=== PATIENT | male | born 1955 | race Caucasian/White ===

== ENCOUNTER → 2016-08-02 | Outpatient (CLI) | payer MEDICARE, OTHER ==
[~2016-08-02] MED LIST: ALEN35TA18 PO; AML5T PO; ATOR10TA PO; BUTACC GT; BUTACC PO; ESCI20TA PO; ESOM40CA39 PO; IBU800T PO; LAMO150T2 PO; NITR0.4D10 TD; PLAVIX PO; RANO1000 PO; TELM80TA PO; TRAZ100T2 PO
== END | disposition home or self-care (01) ==
LOC: Rad HDHVI 10:43
PROVIDERS: ATTEND Internal Medicine Cardiovascular Disease
DX: I10 Essential (primary) hypertension (principal); I73.89 Other specified peripheral vascular diseases; I25.10 Atherosclerotic heart disease of native coronary artery without angina pectoris; Z95.5 Presence of coronary angioplasty implant and graft; I25.2 Old myocardial infarction; I51.7 Cardiomegaly
CPT/HCPCS: 93306

== ENCOUNTER → 2017-01-17 | Outpatient (CLI) | payer MEDICARE, OTHER ==
[~2017-01-17] VITALS: Ht 172.7 cm; Wt 5.5 kg
[~2017-01-17] MED LIST changes: +ADENOSINE 74 MG in GIVE UN-DILUTED 0 ML IV ONE; +ADENOSINE 90 MG/30 ML INJ IV ONE
== END | disposition home or self-care (01) ==
LOC: Rad HDHVI 09:23
PROVIDERS: ATTEND Internal Medicine Cardiovascular Disease
DX: I11.0 Hypertensive heart disease with heart failure (principal); I50.33 Acute on chronic diastolic (congestive) heart failure; M54.30 Sciatica, unspecified side; E78.00 Pure hypercholesterolemia, unspecified; R07.89 Other chest pain; Z95.5 Presence of coronary angioplasty implant and graft
CPT/HCPCS: 78452; 93005; 96374; 96375; A9500; J0153

== ENCOUNTER → 2017-03-19 | Outpatient (CLI) | payer MEDICARE, OTHER ==
[~2017-03-19] MED LIST changes: -ADENOSINE 74 MG in GIVE UN-DILUTED 0 ML IV ONE; -ADENOSINE 90 MG/30 ML INJ IV ONE; +CALC0.5C PO; +DICL1GEL26 PO; +ISOS20TA49 PO; +MULTTAB OR; +NIAC500T71 PO
[2017-03-19 08:00] VITALS: BP 133/69
[2017-03-19 08:40] VITALS: BP 133/69
[2017-03-19 12:18] LABS: Basophils # (auto) 0 uL; Basophils % (auto) 0.3 % (0.0-2.0); CONDITION Y; Eosinophils # (auto) 0.1 uL; Eosinophils % (auto) 0.7 % (0.0-7.0); Hematocrit 42.7 % (41.0-53.0); Hemoglobin 14.5 g/dL (13.5-17.5); Lymphocytes # (auto) 4.4 uL; Lymphocytes % (auto) 39.4 % (10.0-50.0); Mean Corpuscular Hemoglobin 32.2 pg (28.0-32.0); Mean Corpuscular Volume 94.8 fL (80.0-100.0); Mean Platelet Volume 8.8 fL (7.4-10.4); Monocytes # (auto) 0.8 uL; Monocytes % (auto) 7.2 % (0.0-12.0); Neutrophils # (auto) 5.9 uL; Neutrophils % (auto) 52.4 % (37.0-80.0); Platelet Count (auto) 238 10^3/uL (140-450); Red Cell Distribution Width 13.5 % (11.6-16.0); White Blood Cell 11.2 10^3/uL (4.4-10.8)
[2017-03-19 12:27] LABS: INR 0.95 (0.9-1.15); Partial Thromboplastin Time 25.2 sec (22.64-33.71); Prothrombin Time 10.3 sec (9.37-12.3)
[2017-03-19 12:35] LABS: BUN/Creatinine Ratio 20.2; Calcium 9.1 mg/dL (8.5-10.1); Potassium 3.5 mmol/L (3.5-5.1)
== END | disposition home or self-care (01) ==
LOC: CHF HDHVI 08:01
PROVIDERS: ATTEND Internal Medicine Cardiovascular Disease
DX: Z01.812 Encounter for preprocedural laboratory examination (principal); I10 Essential (primary) hypertension; D64.9 Anemia, unspecified; R79.1 Abnormal coagulation profile; E78.00 Pure hypercholesterolemia, unspecified; Z95.5 Presence of coronary angioplasty implant and graft
CPT/HCPCS: 36415; 80048; 85025; 85610; 85730; 93005; G0463

== ENCOUNTER 2017-03-22 07:52 | Day surgery (SDC) | payer MEDICARE, OTHER ==
[~2017-03-22] VITALS: Ht 172.7 cm; Wt 90.7 kg
[~2017-03-22 07:52] MED LIST changes: -BUTACC GT; -BUTACC PO; -RANO1000 PO
[2017-03-22] MEDS ORDERED: MIDAZOLAM HCL 1MG/1ML-2 ML VIAL ONE (08:49)
[2017-03-22] MEDS ORDERED: LIDOCAINE 2%HCL (LOCAL ANESTH.) INJ 20ML MDV ONE ×2 (08:49→09:43)
[2017-03-22] MEDS ORDERED: fentaNYL CITRATE 100 MCG/2 ML VL ONE (08:50)
[2017-03-22] MEDS ORDERED: ANGIOMAX 250 MG VIAL IV ONE (08:54)
[2017-03-22] MEDS ORDERED: SODIUM CHL 0.9% 0 ML ONE (08:54)
== END 2017-03-22 12:25 | disposition home or self-care (01) ==
LOC: CATH 07:52
PROVIDERS: ATTEND Internal Medicine Cardiovascular Disease
DX: R07.9 Chest pain, unspecified (principal); I20.9 Angina pectoris, unspecified; Z95.1 Presence of aortocoronary bypass graft; J44.9 Chronic obstructive pulmonary disease, unspecified; F41.9 Anxiety disorder, unspecified; F32.9 Major depressive disorder, single episode, unspecified; F10.99 Alcohol use, unspecified with unspecified alcohol-induced disorder
CPT/HCPCS: 93458; C1751; C1760; C1894; J1644; J2250; J3010; J7030; 99152; 99153

== ENCOUNTER 2017-08-27 14:31 | Inpatient (IN) | payer MEDICARE, OTHER ==
[~2017-08-27] VITALS: Ht 172.7 cm; Wt 91.7 kg
[2017-08-27 15:57] LABS: Basophils # (auto) 0 uL; Basophils % (auto) 0.4 % (0.0-2.0); Eosinophils # (auto) 0.2 uL; Eosinophils % (auto) 1.6 % (0.0-7.0); Hematocrit 40.7 % (41.0-53.0); Hemoglobin 13.9 g/dL (13.5-17.5); Lymphocytes # (auto) 3.8 uL; Lymphocytes % (auto) 38.9 % (10.0-50.0); Mean Corpuscular Hemoglobin 29.6 pg (28.0-32.0); Mean Corpuscular Hgb Conc. 34.1 g/dL (32.0-36.0); Mean Corpuscular Volume 86.7 fL (80.0-100.0); Monocytes # (auto) 1.1 uL; Monocytes % (auto) 11.2 % (0.0-12.0); Neutrophils # (auto) 4.8 uL; Neutrophils % (auto) 47.9 % (37.0-80.0); Nucleated Red Blood Cells % 1.3 %; Platelet Count (auto) 152 10^3/uL (140-450); Red Blood Cells 4.69 10^6/uL (4.5-5.90); Red Cell Distribution Width 16.1 % (11.8-14.3); White Blood Cell 9.9 10^3/uL (4.4-10.8)
[2017-08-27 16:08] LABS: Potassium 3.4 mmol/L (3.5-5.1)
[2017-08-27 16:11] LABS: Albumin 3.6 g/dL (3.4-5.0); BUN/Creatinine Ratio 19.6
[2017-08-27 16:14] LABS: Bilirubin, Total 0.5 mg/dL (0.2-1.0); Total Protein 8.6 g/dL (6.4-8.2)
[2017-08-27] MEDS ORDERED: methylPREDNISolone SOD SUCC 125 MG/2 ML VL IM ONE (17:00)
[2017-08-27] MEDS ORDERED: ALBUTEROL SULF 2.5 MG/0.5ML(0.5%) NEB SOLN HHN ONE ×2 (17:00→18:45)
[2017-08-27] MEDS ORDERED: IPRATROPIUM BROM 0.5 MG/2.5ML INH SOL HHN ONE ×2 (17:00→18:45)
[2017-08-27] MEDS ORDERED: methylPREDNISolone SOD SUCC 125 MG/2 ML VL IV ONE (18:00)
[2017-08-27] MEDS ORDERED: NITROGLYCERIN 0.4 MG SL TAB SL PRN (19:00)
[2017-08-27] MEDS: AZITHROMYCIN 500MG/ 250ML 250 ML IV SCH (20:11)
[2017-08-27 21:43] VITALS: BP 115/64
[2017-08-27] MEDS: traZODone HCL 50 MG TAB PO SCH (22:00)
[2017-08-27] MEDS: methylPREDNISolone SOD SUCC 40 MG/ML VL IV SCH (22:12)
[2017-08-27 22:30] VITALS: BP 147/68
[2017-08-28] MEDS ORDERED: GABA300C10 PO (00:09)
[2017-08-28] MEDS ORDERED: TRAM50TA2 PO (00:09)
[2017-08-28] MEDS ORDERED: TIZA4CAP PO (00:09)
[2017-08-28 05:00] VITALS: BP 147/72
[2017-08-28] MEDS: methylPREDNISolone SOD SUCC 40 MG/ML VL IV SCH ×3 (05:44→22:08)
[2017-08-28] MEDS: ALBUTEROL SULF 2.5 MG/0.5ML(0.5%) NEB SOLN NEB SCH ×5 (06:59→23:52)
[2017-08-28 08:45] VITALS: BP 140/71
[2017-08-28] MEDS: LEXAPRO 20 MG PO SCH (09:20)
[2017-08-28] MEDS: amLODIPine BESYLATE 5 MG TAB PO SCH (09:26)
[2017-08-28] MEDS: ATORVASTATIN 20 MG TAB PO SCH (09:27)
[2017-08-28] MEDS: PANTOPRAZOLE 40 MG TAB PO SCH (09:27)
[2017-08-28] MEDS: IBUPROFEN 800 MG TAB PO PRN (09:34)
[2017-08-28] MEDS ORDERED: MICARDIS 40 MG PO SCH (10:00)
[2017-08-28] MEDS ORDERED: ISOSORBIDE DINITRATE 10 MG TAB PO SCH (10:00)
[2017-08-28] MEDS ORDERED: lamoTRIgine 100 MG TAB PO SCH (10:00)
[2017-08-28] MEDS: AZITHROMYCIN 500MG/ 250ML 250 ML IV SCH (10:26)
[2017-08-28] MEDS: CLOPIDOGREL BISULFATE 75 MG TAB PO ONE ×2 (10:27→18:55)
[2017-08-28 12:35] VITALS: BP 126/68
[2017-08-28] MEDS ORDERED: CITALOPRAM HYDROBR 20 MG TAB PO SCH (15:15)
[2017-08-28] MEDS ORDERED: LOSARTAN POTASSIUM 50 MG TAB PO SCH (15:15)
[2017-08-28 17:22] VITALS: BP 131/72
[2017-08-28] MEDS: MICARDIS PO SCH (18:55)
[2017-08-28] MEDS: HCT PO SCH (18:55)
[2017-08-28 22:00] VITALS: BP 132/59
[2017-08-28] MEDS: traZODone HCL 50 MG TAB PO SCH (22:07)
[2017-08-28] MEDS: lamoTRIgine 100 MG TAB PO SCH (22:08)
[2017-08-29 05:00] VITALS: BP 128/68
[2017-08-29] MEDS: methylPREDNISolone SOD SUCC 40 MG/ML VL IV SCH ×3 (06:13→22:56)
[2017-08-29] MEDS: ALBUTEROL SULF 2.5 MG/0.5ML(0.5%) NEB SOLN NEB SCH ×3 (08:15→19:58)
[2017-08-29 09:00] VITALS: BP 106/63
[2017-08-29] MEDS ORDERED: PATIENTS OWN MEDICATION PO SCH (10:00)
[2017-08-29] MEDS: ATORVASTATIN 20 MG TAB PO SCH (10:06)
[2017-08-29] MEDS: amLODIPine BESYLATE 5 MG TAB PO SCH (10:07)
[2017-08-29] MEDS: PANTOPRAZOLE 40 MG TAB PO SCH (10:07)
[2017-08-29] MEDS: AZITHROMYCIN 500MG/ 250ML 250 ML IV SCH (10:07)
[2017-08-29] MEDS: MICARDIS PO SCH (10:10)
[2017-08-29] MEDS: HCT PO SCH (10:10)
[2017-08-29 13:00] VITALS: BP 124/61
[2017-08-29] MEDS: LEXAPRO 20 MG PO SCH (13:01)
[2017-08-29 17:00] VITALS: BP 124/70
[2017-08-29 22:00] VITALS: BP 117/59
[2017-08-29] MEDS: lamoTRIgine 100 MG TAB PO SCH (22:56)
[2017-08-29] MEDS: traZODone HCL 50 MG TAB PO SCH (22:56)
[2017-08-30] MEDS: ALBUTEROL SULF 2.5 MG/0.5ML(0.5%) NEB SOLN NEB SCH ×4 (00:34→19:38)
[2017-08-30 05:00] VITALS: BP 120/65
[2017-08-30] MEDS: methylPREDNISolone SOD SUCC 40 MG/ML VL IV SCH ×3 (06:49→21:27)
[2017-08-30 07:28] LABS: Basophils # (auto) 0 uL; Eosinophils # (auto) 0 uL; Hematocrit 36.9 % (41.0-53.0); Hemoglobin 12.8 g/dL (13.5-17.5); Lymphocytes # (auto) 6.3 uL; Lymphocytes % (auto) 37.3 % (10.0-50.0); Mean Corpuscular Hgb Conc. 34.7 g/dL (32.0-36.0); Mean Corpuscular Volume 86.4 fL (80.0-100.0); Monocytes # (auto) 0.7 uL; Neutrophils # (auto) 9.9 uL; Neutrophils % (auto) 58.7 % (37.0-80.0); Nucleated Red Blood Cells % 0.3 %; Platelet Count (auto) 163 10^3/uL (140-450); Red Blood Cells 4.27 10^6/uL (4.5-5.90); Red Cell Distribution Width 15.7 % (11.8-14.3); White Blood Cell 16.9 10^3/uL (4.4-10.8)
[2017-08-30 07:40] LABS: BUN/Creatinine Ratio 34.9; Calcium 8.4 mg/dL (8.5-10.1); Potassium 3.6 mmol/L (3.5-5.1)
[2017-08-30 09:00] VITALS: BP 117/64
[2017-08-30] MEDS: IBUPROFEN 800 MG TAB PO PRN ×2 (09:44→21:47)
[2017-08-30] MEDS: AZITHROMYCIN 500MG/ 250ML 250 ML IV SCH (12:46)
[2017-08-30] MEDS: LEXAPRO 20 MG PO SCH (12:46)
[2017-08-30] MEDS: ATORVASTATIN 20 MG TAB PO SCH (12:47)
[2017-08-30] MEDS: HCT PO SCH (12:47)
[2017-08-30] MEDS: MICARDIS PO SCH (12:47)
[2017-08-30] MEDS: amLODIPine BESYLATE 5 MG TAB PO SCH (12:48)
[2017-08-30] MEDS: PANTOPRAZOLE 40 MG TAB PO SCH (12:49)
[2017-08-30 13:00] VITALS: BP 115/59
[2017-08-30 17:00] VITALS: BP 114/64
[2017-08-30 20:47] VITALS: BP 114/61
[2017-08-30] MEDS: traZODone HCL 50 MG TAB PO SCH (21:26)
[2017-08-30] MEDS: lamoTRIgine 100 MG TAB PO SCH (21:26)
[2017-08-30 21:51] VITALS: BP 128/62
[2017-08-31] MEDS: ALBUTEROL SULF 2.5 MG/0.5ML(0.5%) NEB SOLN NEB SCH ×4 (01:10→13:04)
[2017-08-31 05:00] VITALS: BP 107/63
[2017-08-31] MEDS: methylPREDNISolone SOD SUCC 40 MG/ML VL IV SCH ×2 (05:57→14:00)
[2017-08-31 09:00] VITALS: BP 118/63
[2017-08-31] MEDS: MICARDIS PO SCH (10:32)
[2017-08-31] MEDS: LEXAPRO 20 MG PO SCH (10:32)
[2017-08-31] MEDS: HCT PO SCH (10:32)
[2017-08-31] MEDS: ATORVASTATIN 20 MG TAB PO SCH (10:33)
[2017-08-31] MEDS: amLODIPine BESYLATE 5 MG TAB PO SCH (10:35)
[2017-08-31] MEDS: PANTOPRAZOLE 40 MG TAB PO SCH (10:35)
[2017-08-31] MEDS: AZITHROMYCIN 500MG/ 250ML 250 ML IV SCH (10:36)
[2017-08-31 13:00] VITALS: BP 143/57
[2017-08-31 16:23] VITALS: BP 143/57
[2017-08-31 17:27] VITALS: BP 125/64
== END 2017-08-31 17:31 | disposition home or self-care (01) | DRG 871 ==
LOC: ER 14:31 → TELE 14:32 → TELE-EAST 22:25
PROVIDERS: ADMIT Internal Medicine Cardiovascular Disease; ATTEND Internal Medicine Cardiovascular Disease
DX: A41.9 Sepsis, unspecified organism (principal); N17.0 Acute kidney failure with tubular necrosis; I11.0 Hypertensive heart disease with heart failure; J18.9 Pneumonia, unspecified organism; I50.22 Chronic systolic (congestive) heart failure; E11.9 Type 2 diabetes mellitus without complications; I25.10 Atherosclerotic heart disease of native coronary artery without angina pectoris; F32.9 Major depressive disorder, single episode, unspecified; F41.9 Anxiety disorder, unspecified; I25.5 Ischemic cardiomyopathy; J40 Bronchitis, not specified as acute or chronic; K21.9 Gastro-esophageal reflux disease without esophagitis; Z82.49 Family history of ischemic heart disease and other diseases of the circulatory system; Z95.5 Presence of coronary angioplasty implant and graft
CPT/HCPCS: 36415; 71046; 80048; 80053; 83880; 85025; 87804; 93005; 94640; 96374

== ENCOUNTER → 2017-10-25 | Outpatient (CLI) | payer MEDICARE, OTHER ==
[~2017-10-25] MED LIST changes: -ALEN35TA18 PO; -ATOR10TA PO; -CALC0.5C PO; -DICL1GEL26 PO; -ESOM40CA39 PO; +GABA300C10 PO; -ISOS20TA49 PO; -MULTTAB OR; -NIAC500T71 PO; +TIZA4CAP PO; +TRAM50TA2 PO
== END | disposition home or self-care (01) ==
LOC: Rad HDHVI 09:55
PROVIDERS: ATTEND Internal Medicine Cardiovascular Disease
DX: I25.5 Ischemic cardiomyopathy (principal); E11.9 Type 2 diabetes mellitus without complications; K21.9 Gastro-esophageal reflux disease without esophagitis; J44.9 Chronic obstructive pulmonary disease, unspecified; I10 Essential (primary) hypertension
CPT/HCPCS: 93306

== ENCOUNTER → 2017-11-27 | Outpatient (CLI) | payer MEDICARE, OTHER ==
[~2017-11-27] MED LIST changes: +MVI in SODIUM CHLORIDE 0.9% 1,000 ML IVB ONE; +MVI in SODIUM CHLORIDE 0.9% 1,010 ML ONE
[2017-11-27 15:58] LABS: BUN/Creatinine Ratio 21.3; Calcium 9.4 mg/dL (8.5-10.1); Potassium 3.1 mmol/L (3.5-5.1)
[2017-11-27 16:03] LABS: Eosinophils # (auto) 0.1 uL; Eosinophils % (auto) 0.4 % (0.0-7.0); Hemoglobin 14.4 g/dL (13.5-17.5)
[2017-11-27 16:06] LABS: Basophils # (auto) 0 uL; Basophils % (auto) 0.2 % (0.0-2.0); Hematocrit 40.4 % (41.0-53.0); Lymphocytes # (auto) 8.3 uL; Lymphocytes % (auto) 48.9 % (10.0-50.0); Mean Corpuscular Hemoglobin 30.9 pg (28.0-32.0); Mean Corpuscular Hgb Conc. 35.6 g/dL (32.0-36.0); Monocytes # (auto) 1.3 uL; Monocytes % (auto) 7.9 % (0.0-12.0); Neutrophils # (auto) 7.2 uL; Neutrophils % (auto) 42.6 % (37.0-80.0); Nucleated Red Blood Cells % 0.3 %; Platelet Count (auto) 484 10^3/uL (140-450); Red Blood Cells 4.65 10^6/uL (4.5-5.90); Red Cell Distribution Width 14.6 % (11.8-14.3)
[2017-11-27 16:14] VITALS: BP 114/60
== END | disposition home or self-care (01) ==
LOC: CHF HDHVI 13:09
PROVIDERS: ATTEND Internal Medicine Cardiovascular Disease
DX: E86.0 Dehydration (principal); D64.9 Anemia, unspecified; M54.2 Cervicalgia; I25.10 Atherosclerotic heart disease of native coronary artery without angina pectoris; E11.9 Type 2 diabetes mellitus without complications; K21.9 Gastro-esophageal reflux disease without esophagitis; J44.9 Chronic obstructive pulmonary disease, unspecified; I11.0 Hypertensive heart disease with heart failure; I50.22 Chronic systolic (congestive) heart failure; Z95.1 Presence of aortocoronary bypass graft
CPT/HCPCS: 36415; 80048; 85025; 96365; 96366; G0463; J3411; J3475

== ENCOUNTER → 2017-12-07 | Outpatient (CLI) | payer MEDICARE, OTHER ==
[~2017-12-07] MED LIST changes: +MULTIPLE VITAMIN 10 ML in SODIUM CHLORIDE 0.9% 1,000 ML IV ONE; -MVI in SODIUM CHLORIDE 0.9% 1,000 ML IVB ONE
[2017-12-07 09:55] VITALS: BP 124/61
[2017-12-07 10:59] LABS: Basophils # (auto) 0 uL; Basophils % (auto) 0.3 % (0.0-2.0); Eosinophils # (auto) 0.1 uL; Eosinophils % (auto) 0.5 % (0.0-7.0); Hematocrit 38.4 % (41.0-53.0); Hemoglobin 13.2 g/dL (13.5-17.5); Lymphocytes # (auto) 5.8 uL; Lymphocytes % (auto) 47.1 % (10.0-50.0); Mean Corpuscular Hemoglobin 30.8 pg (28.0-32.0); Mean Corpuscular Hgb Conc. 34.4 g/dL (32.0-36.0); Mean Corpuscular Volume 89.5 fL (80.0-100.0); Monocytes # (auto) 0.6 uL; Monocytes % (auto) 4.6 % (0.0-12.0); Neutrophils # (auto) 5.9 uL; Neutrophils % (auto) 47.5 % (37.0-80.0); Nucleated Red Blood Cells % 0.2 %; Platelet Count (auto) 282 10^3/uL (140-450); Red Cell Distribution Width 14.3 % (11.8-14.3); White Blood Cell 12.4 10^3/uL (4.4-10.8)
[2017-12-07 11:09] LABS: Albumin 3.6 g/dL (3.4-5.0); BUN/Creatinine Ratio 18.3; Bilirubin, Total 0.5 mg/dL (0.2-1.0); Calcium 9.1 mg/dL (8.5-10.1); Potassium 3.5 mmol/L (3.5-5.1); Total Protein 8.5 g/dL (6.4-8.2)
[2017-12-07 13:00] VITALS: BP 122/64
== END | disposition home or self-care (01) ==
LOC: CHF HDHVI 09:54
PROVIDERS: ATTEND Internal Medicine Cardiovascular Disease
DX: D64.9 Anemia, unspecified (principal); R70.0 Elevated erythrocyte sedimentation rate; I10 Essential (primary) hypertension; R06.02 Shortness of breath; E11.9 Type 2 diabetes mellitus without complications; K21.9 Gastro-esophageal reflux disease without esophagitis
CPT/HCPCS: 36415; 71046; 80053; 85025; 85652; G0463; J3411; J3475

== ENCOUNTER 2017-12-25 19:12 | Inpatient (IN) | payer MEDICARE, OTHER ==
[~2017-12-25] VITALS: Ht 172.7 cm; Wt 80.6 kg
[~2017-12-25 19:12] MED LIST changes: -MULTIPLE VITAMIN 10 ML in SODIUM CHLORIDE 0.9% 1,000 ML IV ONE; -MVI in SODIUM CHLORIDE 0.9% 1,010 ML ONE
[2017-12-25] MEDS ORDERED: LORazepam 2MG/ML-1ML VIAL ONE (19:49)
[2017-12-25 20:11] LABS: INR 0.94 (0.9-1.15); Partial Thromboplastin Time 24.3 sec (23.78-33.04); Prothrombin Time 10.1 sec (9.27-12.13)
[2017-12-25 20:16] LABS: Alanine Aminotransferase 21 U/L (16-61); Albumin 3.4 g/dL (3.4-5.0); Anion Gap 9 (5-15); Aspartate Aminotransferase 9 U/L (15-37); BUN/Creatinine Ratio 12.9; Blood Urea Nitrogen 12 mg/dL (7-18); Calcium 8.6 mg/dL (8.5-10.1); Carbon Dioxide 24 mmol/L (21-32); Chloride 107 mmol/L (98-107); GFR African American 105 mL/min; GFR Non-African American 87 mL/min; Glucose 120 mg/dL (74-106); Magnesium 2.3 mg/dL (1.6-2.6); Potassium 3.9 mmol/L (3.5-5.1); Sodium 140 mmol/L (136-145)
[2017-12-25 20:20] LABS: Basophils # (auto) 0 uL; Basophils % (auto) 0.3 % (0.0-2.0); Eosinophils # (auto) 0.1 uL; Eosinophils % (auto) 0.5 % (0.0-7.0); Hematocrit 39.3 % (41.0-53.0); Hemoglobin 13.3 g/dL (13.5-17.5); Lymphocytes # (auto) 4.2 uL; Lymphocytes % (auto) 33.2 % (10.0-50.0); Mean Corpuscular Hemoglobin 30.8 pg (28.0-32.0); Mean Corpuscular Hgb Conc. 33.8 g/dL (32.0-36.0); Mean Corpuscular Volume 91.1 fL (80.0-100.0); Monocytes # (auto) 0.8 uL; Monocytes % (auto) 6.1 % (0.0-12.0); Neutrophils # (auto) 7.5 uL; Neutrophils % (auto) 59.9 % (37.0-80.0); Nucleated Red Blood Cells % 0.4 %; Platelet Count (auto) 281 10^3/uL (140-450); Red Blood Cells 4.31 10^6/uL (4.5-5.90); Red Cell Distribution Width 14.9 % (11.8-14.3); White Blood Cell 12.5 10^3/uL (4.4-10.8)
[2017-12-25 20:21] LABS: Alkaline Phosphatase 94 U/L (45-117); Bilirubin, Total 0.3 mg/dL (0.2-1.0)
[2017-12-25] MEDS ORDERED: traMADol HCL 50 MG TAB PO ONE (22:30)
[2017-12-26] VITALS (7 sets, daily range): BP systolic 138–147; BP diastolic 67–82
[2017-12-26] MEDS ORDERED: TIZANIDINE HYDROCHLORIDE 2 MG PO SCH (01:15)
[2017-12-26] MEDS ORDERED: IBUPROFEN 800 MG TAB PO SCH (01:15)
[2017-12-26] MEDS ORDERED: MORPHINE SULF(PF) 0.5MG/ML 10ML VIAL IV PRN (01:30)
[2017-12-26] MEDS ORDERED: NITROGLYCERIN 0.4 MG SL TAB SL PRN (01:30)
[2017-12-26] MEDS: traMADol HCL 50 MG TAB PO SCH ×4 (05:55→23:42)
[2017-12-26] MEDS ORDERED: amLODIPine BESYLATE 5 MG TAB PO SCH (10:00)
[2017-12-26] MEDS: LEXAPRO 20 MG PO SCH (10:00)
[2017-12-26] MEDS: TELMISARTAN 40 MG PO SCH (10:00)
[2017-12-26] MEDS: lamoTRIgine 100 MG TAB PO SCH (10:04)
[2017-12-26] MEDS: LORazepam 2MG/ML-1ML VIAL IV PRN (18:11)
[2017-12-26] MEDS: traZODone HCL 50 MG TAB PO SCH (20:58)
[2017-12-27 05:07] VITALS: BP 115/70
[2017-12-27] MEDS: traMADol HCL 50 MG TAB PO SCH ×4 (05:38→23:57)
[2017-12-27 09:00] VITALS: BP 147/67
[2017-12-27] MEDS: lamoTRIgine 100 MG TAB PO SCH (09:43)
[2017-12-27] MEDS: TELMISARTAN 40 MG PO SCH ×2 (09:43→21:12)
[2017-12-27] MEDS: LEXAPRO 20 MG PO SCH ×2 (09:43→21:13)
[2017-12-27] MEDS: amLODIPine BESYLATE 5 MG TAB PO SCH (10:15)
[2017-12-27] MEDS ORDERED: CLOPIDOGREL BISULFATE 75 MG TAB PO ONE (12:00)
[2017-12-27 13:00] VITALS: BP 115/75
[2017-12-27] MEDS: LORazepam 2MG/ML-1ML VIAL IV PRN ×2 (13:19→20:19)
[2017-12-27 17:00] VITALS: BP 134/71
[2017-12-27] MEDS: traZODone HCL 50 MG TAB PO SCH (21:03)
[2017-12-27 21:55] VITALS: BP 139/72
[2017-12-28 04:43] VITALS: BP 127/72
[2017-12-28] MEDS: traMADol HCL 50 MG TAB PO SCH ×4 (05:48→23:46)
[2017-12-28 09:00] VITALS: BP 123/74
[2017-12-28] MEDS: lamoTRIgine 100 MG TAB PO SCH ×2 (09:26→21:19)
[2017-12-28] MEDS: CLOPIDOGREL BISULFATE 75 MG TAB PO SCH (09:27)
[2017-12-28] MEDS: amLODIPine BESYLATE 5 MG TAB PO SCH (09:27)
[2017-12-28] MEDS: LORazepam 2MG/ML-1ML VIAL IV PRN ×4 (12:01→22:35)
[2017-12-28 13:00] VITALS: BP 133/82
[2017-12-28 17:33] VITALS: BP 136/66
[2017-12-28] MEDS: traZODone HCL 50 MG TAB PO SCH (21:18)
[2017-12-28] MEDS: TELMISARTAN 40 MG PO SCH (21:19)
[2017-12-28 22:00] VITALS: BP 123/72
[2017-12-28] MEDS ORDERED: LEVETIRACETAM INJ 1,000 MG in D5W 5% 100 ML IV ONE (23:00)
[2017-12-28] MEDS ORDERED: LEVETIRACETAM 500 MG/5ML INJ IV ONE (23:23)
[2017-12-29 05:30] VITALS: BP 112/79
[2017-12-29] MEDS: traMADol HCL 50 MG TAB PO SCH ×3 (05:56→17:32)
[2017-12-29] MEDS: LEXAPRO 20 MG PO SCH (05:57)
[2017-12-29 09:00] VITALS: BP 127/79
[2017-12-29] MEDS: lamoTRIgine 100 MG TAB PO SCH ×2 (10:21→21:18)
[2017-12-29] MEDS: LORazepam 2MG/ML-1ML VIAL IV PRN ×2 (10:22→17:05)
[2017-12-29] MEDS: CLOPIDOGREL BISULFATE 75 MG TAB PO SCH (10:22)
[2017-12-29] MEDS: amLODIPine BESYLATE 5 MG TAB PO SCH (10:22)
[2017-12-29] MEDS: LEVETIRACETAM 500 MG TAB PO SCH ×2 (12:58→21:18)
[2017-12-29 13:00] VITALS: BP 118/66
[2017-12-29 17:00] VITALS: BP 140/66
[2017-12-29] MEDS: TELMISARTAN 40 MG PO SCH (21:17)
[2017-12-29] MEDS: traZODone HCL 50 MG TAB PO SCH (21:18)
[2017-12-29 22:00] VITALS: BP 136/70
[2017-12-30] MEDS: LORazepam 2MG/ML-1ML VIAL IV PRN ×4 (00:16→20:13)
[2017-12-30 05:00] VITALS: BP 143/63
[2017-12-30] MEDS: traMADol HCL 50 MG TAB PO SCH ×4 (06:00→18:00)
[2017-12-30] MEDS: LEXAPRO 20 MG PO SCH (06:22)
[2017-12-30 09:00] VITALS: BP 125/59
[2017-12-30] MEDS: amLODIPine BESYLATE 5 MG TAB PO SCH (09:58)
[2017-12-30] MEDS: LEVETIRACETAM 500 MG TAB PO SCH ×2 (09:58→21:55)
[2017-12-30] MEDS: lamoTRIgine 100 MG TAB PO SCH ×2 (09:58→21:55)
[2017-12-30] MEDS: CLOPIDOGREL BISULFATE 75 MG TAB PO SCH (09:59)
[2017-12-30 13:00] VITALS: BP 131/64
[2017-12-30 17:00] VITALS: BP 139/52
[2017-12-30 19:54] LABS: Prothrombin Time 10.7 sec (9.27-12.13)
[2017-12-30] MEDS: TELMISARTAN 40 MG PO SCH (21:55)
[2017-12-30] MEDS: traZODone HCL 50 MG TAB PO SCH (21:55)
[2017-12-31] MEDS: LORazepam 2MG/ML-1ML VIAL IV PRN ×3 (02:28→11:25)
[2017-12-31 05:00] VITALS: BP 111/67
[2017-12-31] MEDS: traMADol HCL 50 MG TAB PO SCH ×5 (06:00→23:36)
[2017-12-31] MEDS: LEXAPRO 20 MG PO SCH ×2 (06:09→06:31)
[2017-12-31 07:29] VITALS: BP 121/67
[2017-12-31] MEDS: CLOPIDOGREL BISULFATE 75 MG TAB PO SCH (10:00)
[2017-12-31] MEDS: lamoTRIgine 100 MG TAB PO SCH ×2 (10:02→22:04)
[2017-12-31] MEDS: LEVETIRACETAM 500 MG TAB PO SCH ×2 (10:02→22:04)
[2017-12-31] MEDS: amLODIPine BESYLATE 5 MG TAB PO SCH (10:03)
[2017-12-31 12:00] VITALS: BP 129/88
[2017-12-31] MEDS ORDERED: ceFAZolin 1GM/50ML 50 ML IV ONE (13:20)
[2017-12-31] MEDS ORDERED: LIDOCAINE 2% (LOCAL ANESTH.) PF 5ml SDV ONE ×2 (13:44→14:19)
[2017-12-31] MEDS ORDERED: VANCOMYCIN HCL 1000 MG VL ONE (13:53)
[2017-12-31] MEDS ORDERED: fentaNYL CITRATE 100 MCG/2 ML VL ONE (13:53)
[2017-12-31] MEDS ORDERED: MIDAZOLAM HCL 1MG/1ML-2 ML VIAL ONE (13:53)
[2017-12-31] MEDS ORDERED: VANCOMYCIN 1GM/250ML 250 ML IV ONE (13:53)
[2017-12-31] MEDS ORDERED: HYDROcodone-ACET 5/325MG TAB PO PRN (15:00)
[2017-12-31] MEDS ORDERED: ACETAMINOPHEN 325 MG TAB PO PRN (15:00)
[2017-12-31 16:19] VITALS: BP 133/75
[2017-12-31 22:00] VITALS: BP 130/53
[2017-12-31] MEDS: traZODone HCL 50 MG TAB PO SCH (22:04)
[2017-12-31] MEDS: VANCOMYCIN 1GM/250ML 250 ML IV SCH (22:04)
[2017-12-31] MEDS: TELMISARTAN 40 MG PO SCH (22:04)
[2018-01-01 05:00] VITALS: BP 135/69
[2018-01-01] MEDS: traMADol HCL 50 MG TAB PO SCH ×5 (06:00→23:31)
[2018-01-01] MEDS: LEXAPRO 20 MG PO SCH (06:33)
[2018-01-01 07:27] VITALS: BP 137/74
[2018-01-01] MEDS: amLODIPine BESYLATE 5 MG TAB PO SCH (08:22)
[2018-01-01] MEDS: LEVETIRACETAM 500 MG TAB PO SCH ×2 (08:22→22:06)
[2018-01-01] MEDS: lamoTRIgine 100 MG TAB PO SCH ×2 (08:22→22:06)
[2018-01-01] MEDS: CLOPIDOGREL BISULFATE 75 MG TAB PO SCH (08:22)
[2018-01-01] MEDS: VANCOMYCIN 1GM/250ML 250 ML IV SCH (11:34)
[2018-01-01 12:41] VITALS: BP 139/69
[2018-01-01 16:37] VITALS: BP 127/76
[2018-01-01 21:37] VITALS: BP 127/85
[2018-01-01] MEDS: traZODone HCL 50 MG TAB PO SCH (22:06)
[2018-01-01] MEDS: TELMISARTAN 40 MG PO SCH (22:07)
[2018-01-02 05:08] VITALS: BP 155/78
[2018-01-02] MEDS: traMADol HCL 50 MG TAB PO SCH (06:04)
[2018-01-02] MEDS: LEXAPRO 20 MG PO SCH (06:04)
[2018-01-02 09:00] VITALS: BP 136/76
[2018-01-02] MEDS: lamoTRIgine 100 MG TAB PO SCH (09:42)
[2018-01-02] MEDS: CLOPIDOGREL BISULFATE 75 MG TAB PO SCH (09:42)
[2018-01-02] MEDS: LEVETIRACETAM 500 MG TAB PO SCH (09:42)
[2018-01-02] MEDS: amLODIPine BESYLATE 5 MG TAB PO SCH (09:43)
[2018-01-02 11:07] VITALS: BP 136/76
[2018-01-02 12:00] VITALS: BP 147/70
== END 2018-01-02 12:35 | disposition home or self-care (01) | DRG 41 ==
LOC: ER 19:12 → TELE 19:13 → TELE-WESTW 12-26 02:12
PROVIDERS: ADMIT Internal Medicine Cardiovascular Disease; ATTEND Internal Medicine Cardiovascular Disease
PROC: 02H63JZ Insertion of Pacemaker Lead into Right Atrium, Percutaneous Approach (ICD-10-PCS; principal; 2017-12-31)
PROC: 0JH606Z Insertion of Pacemaker, Dual Chamber into Chest Subcutaneous Tissue and Fascia, Open Approach (ICD-10-PCS; 2017-12-31)
PROC: 02HK3JZ Insertion of Pacemaker Lead into Right Ventricle, Percutaneous Approach (ICD-10-PCS; 2017-12-31)
DX: G40.901 Epilepsy, unspecified, not intractable, with status epilepticus (principal); I44.2 Atrioventricular block, complete; I25.10 Atherosclerotic heart disease of native coronary artery without angina pectoris; M48.02 Spinal stenosis, cervical region; F43.10 Post-traumatic stress disorder, unspecified; D72.829 Elevated white blood cell count, unspecified; E11.51 Type 2 diabetes mellitus with diabetic peripheral angiopathy without gangrene; E78.5 Hyperlipidemia, unspecified; F17.200 Nicotine dependence, unspecified, uncomplicated; X58.XXXA Exposure to other specified factors, initial encounter; F32.9 Major depressive disorder, single episode, unspecified; I10 Essential (primary) hypertension; K21.9 Gastro-esophageal reflux disease without esophagitis; G89.29 Other chronic pain; I67.2 Cerebral atherosclerosis; M47.812 Spondylosis without myelopathy or radiculopathy, cervical region; Z80.8 Family history of malignant neoplasm of other organs or systems; Z82.49 Family history of ischemic heart disease and other diseases of the circulatory system; Z82.5 Family history of asthma and other chronic lower respiratory diseases; Z79.899 Other long term (current) drug therapy; Z98.1 Arthrodesis status; Y93.9 Activity, unspecified; Y92.9 Unspecified place or not applicable; Y99.9 Unspecified external cause status
CPT/HCPCS: 36415; 70450; 71045; 72125; 80053; 83735; 83880; 84443; 84484; 85025; 85379; 85610; 85730; 86850; 86900; 86901; 93005; 95819; 96374; 99152; C1785; J0690; J2250; J7060

== ENCOUNTER → 2018-01-11 | Outpatient (CLI) | payer MEDICARE, OTHER ==
[2018-01-11 11:10] VITALS: BP 153/71
[2018-01-11 11:30] VITALS: BP 153/71
== END | disposition home or self-care (01) ==
LOC: CHF HDHVI 12:08
PROVIDERS: ATTEND Internal Medicine Cardiovascular Disease
DX: R55 Syncope and collapse (principal); I10 Essential (primary) hypertension; E11.9 Type 2 diabetes mellitus without complications; E78.5 Hyperlipidemia, unspecified; J44.9 Chronic obstructive pulmonary disease, unspecified; Z95.0 Presence of cardiac pacemaker; Z87.891 Personal history of nicotine dependence; Z79.899 Other long term (current) drug therapy
CPT/HCPCS: G0463

== ENCOUNTER → 2018-03-14 | Outpatient (CLI) | payer MEDICARE, OTHER | END | disposition home or self-care (01) | LOC: Rad HDHVI 10:01 | PROVIDERS: ATTEND Internal Medicine Cardiovascular Disease | DX: I10 Essential (primary) hypertension (principal); I47.2 Ventricular tachycardia; I44.2 Atrioventricular block, complete; J44.9 Chronic obstructive pulmonary disease, unspecified; F41.9 Anxiety disorder, unspecified | CPT/HCPCS: 93306 ==

== ENCOUNTER → 2018-06-26 | Outpatient (CLI) | payer MEDICARE, OTHER | END | disposition home or self-care (01) | LOC: LAB 08:21 | PROVIDERS: ATTEND Internal Medicine Cardiovascular Disease | DX: M32.10 Systemic lupus erythematosus, organ or system involvement unspecified (principal); M05.9 Rheumatoid arthritis with rheumatoid factor, unspecified | CPT/HCPCS: 86225; 86235 ==

== ENCOUNTER → 2018-08-05 | Outpatient (CLI) | payer MEDICARE, OTHER ==
[~2018-08-05] MED LIST changes: +IOHEXOL 350 MG/ML 100ML IJ ONE
[2018-08-05 10:00] VITALS: BP 141/67
--- NOTE | 2018-08-05 10:00 | NUR ---
CHF PT TO CHF CLINIC FOR IV INSERT FOR CT ABD/PEL. DX CIRRHOSIS LIVER
--- NOTE | 2018-08-05 10:10 | NUR ---
CHF IV insertion IV access obtained, via clean sterile technique by inserting 22 gauge catheter at after attempt(s). IV secured properly. No trauma to site. Patient tolerated procedure well.
[2018-08-05 11:10] VITALS: BP 137/61
--- NOTE | 2018-08-05 11:10 | NUR ---
CHF IV removal IV DC'd with sterile technique, catheter fully intact. Pressure dressing applied to site. Patient tolerated procedure well. Discharged with aftercare instructions per MD. FOLLOW UP FOR RESULTS SCHEDULED. NOTE:
== END | disposition home or self-care (01) ==
LOC: Rad HDHVI 09:54
PROVIDERS: ATTEND Internal Medicine Cardiovascular Disease
DX: N28.1 Cyst of kidney, acquired (principal); I70.8 Atherosclerosis of other arteries
CPT/HCPCS: 74177; 82565; G0463; Q9967

== ENCOUNTER → 2019-01-03 | Outpatient (CLI) | payer MEDICARE, OTHER ==
[~2019-01-03] MED LIST changes: +CLOP75TA28 PO; -IOHEXOL 350 MG/ML 100ML IJ ONE
[2019-01-03 10:00] VITALS: BP 125/63
[2019-01-03 10:30] VITALS: BP 134/71
--- NOTE | 2019-01-03 10:30 | NUR ---
PRE-OP FOR LEFT AND RIGHT HEART CATH FOR 01/07/19. Pre-Op Discharge Summary: See e-MAR for any medications given for this visit. Pre-op orders received and carried out per MD of EKG, LABS and chest xrays. Patient given a copy of EKG with instructions to go to [facility] out patient for further follow up care. .
[2019-01-03 11:40] LABS: Basophils # (auto) 0 uL; Basophils % (auto) 0.3 % (0.0-2.0); Eosinophils # (auto) 0 uL; Eosinophils % (auto) 0.3 % (0.0-7.0); Hematocrit 38.6 % (41.0-53.0); Hemoglobin 12.8 g/dL (13.5-17.5); Lymphocytes # (auto) 5.3 uL; Lymphocytes % (auto) 43.1 % (10.0-50.0); Mean Corpuscular Hemoglobin 29.3 pg (28.0-32.0); Mean Corpuscular Hgb Conc. 33.1 g/dL (32.0-36.0); Mean Corpuscular Volume 88.6 fL (80.0-100.0); Monocytes # (auto) 1.2 uL; Monocytes % (auto) 9.3 % (0.0-12.0); Neutrophils # (auto) 5.8 uL; Nucleated Red Blood Cells % 0.1 %; Platelet Count (auto) 265 10^3/uL (140-450); Red Blood Cells 4.36 10^6/uL (4.5-5.90); Red Cell Distribution Width 15.2 % (11.8-14.3); White Blood Cell 12.3 10^3/uL (4.4-10.8)
[2019-01-03 11:50] LABS: Potassium 3.9 mmol/L (3.5-5.1)
[2019-01-03 11:58] LABS: INR 0.97 (0.9-1.15)
[2019-01-03 12:00] LABS: BUN/Creatinine Ratio 29.8
== END | disposition home or self-care (01) ==
LOC: Rad HDHVI 09:34
PROVIDERS: ATTEND Internal Medicine Cardiovascular Disease
DX: Z01.812 Encounter for preprocedural laboratory examination (principal); D64.9 Anemia, unspecified; R79.1 Abnormal coagulation profile; I10 Essential (primary) hypertension; I25.10 Atherosclerotic heart disease of native coronary artery without angina pectoris; E11.9 Type 2 diabetes mellitus without complications; R91.8 Other nonspecific abnormal finding of lung field; I70.0 Atherosclerosis of aorta
CPT/HCPCS: 36415; 71046; 80048; 85025; 85610; 85730; 93005; G0463

== ENCOUNTER → 2020-01-13 | Outpatient (CLI) | payer MEDICARE, OTHER ==
[~2020-01-13] MED LIST changes: -AML5T PO; -GABA300C10 PO; -NITR0.4D10 TD; -PLAVIX PO; -TELM80TA PO; -TIZA4CAP PO; -TRAZ100T2 PO; +TRAZ100T3 PO
== END | disposition home or self-care (01) ==
LOC: Rad HDHVI 09:00
PROVIDERS: ATTEND Internal Medicine Cardiovascular Disease
DX: I50.43 Acute on chronic combined systolic (congestive) and diastolic (congestive) heart failure (principal); I51.7 Cardiomegaly; R06.02 Shortness of breath
CPT/HCPCS: 93306

== ENCOUNTER → 2020-01-16 | Outpatient (CLI) | payer MEDICARE, OTHER ==
[~2020-01-16] VITALS: Ht 172.7 cm; Wt 81.6 kg
[~2020-01-16] MED LIST changes: +ADENOSINE 69 MG in GIVE UN-DILUTED 0 ML IV ONE; +ADENOSINE 90 MG/30 ML INJ IV ONE
== END | disposition home or self-care (01) ==
LOC: Rad HDHVI 08:59
PROVIDERS: ATTEND Internal Medicine Cardiovascular Disease
DX: I25.10 Atherosclerotic heart disease of native coronary artery without angina pectoris (principal); I25.2 Old myocardial infarction; I10 Essential (primary) hypertension; E78.00 Pure hypercholesterolemia, unspecified; Z82.49 Family history of ischemic heart disease and other diseases of the circulatory system
CPT/HCPCS: 78452; 93005; 96374; 96375; A9500; J0153

== ENCOUNTER → 2020-04-27 | Outpatient (CLI) | payer MEDICARE, OTHER ==
[~2020-04-27] MED LIST changes: -ADENOSINE 69 MG in GIVE UN-DILUTED 0 ML IV ONE; -ADENOSINE 90 MG/30 ML INJ IV ONE
[2020-04-27 15:53] LABS: Basophils # (auto) 0 10 ^3/uL (0-0.2); Eosinophils % (auto) 0.4 % (0.0-7.0); Hemoglobin 14.4 g/dL (13.5-17.5); Mean Corpuscular Hgb Conc. 33.4 g/dL (32.0-36.0); Monocytes # (auto) 0.8 10 ^3/uL (0-1.3); Platelet Count (auto) 212 10^3/uL (140-450); White Blood Cell 13.3 10^3/uL (4.4-10.8)
[2020-04-27 15:57] LABS: Basophils % (auto) 0.3 % (0.0-2.0); Eosinophils # (auto) 0.1 10 ^3/uL (0-0.8); Hematocrit 43.1 % (41.0-53.0); Lymphocytes # (auto) 6.5 10 ^3/uL (0.4-5.4); Lymphocytes % (auto) 48.9 % (10.0-50.0); Monocytes % (auto) 5.9 % (0.0-12.0); Neutrophils # (auto) 5.9 10 ^3/uL (1.6-8.6); Neutrophils % (auto) 44.5 % (37.0-80.0); Nucleated Red Blood Cells % 0.3 %; Red Blood Cells 4.63 10^6/uL (4.5-5.90); Red Cell Distribution Width 15.9 % (11.8-14.3)
[2020-04-27 16:05] LABS: Albumin 3.7 g/dL (3.4-5.0); Calcium 9.1 mg/dL (8.5-10.1); Potassium 3.7 mmol/L (3.5-5.1)
[2020-04-27 16:10] LABS: BUN/Creatinine Ratio 17.6; Bilirubin, Direct 0.1 mg/dL (0-0.2); Bilirubin, Total 0.4 mg/dL (0.2-1.0); Total Protein 8.7 g/dL (6.4-8.2)
== END | disposition home or self-care (01) ==
LOC: LAB 11:46
PROVIDERS: ATTEND Internal Medicine Cardiovascular Disease
DX: D51.3 Other dietary vitamin B12 deficiency anemia (principal); C61 Malignant neoplasm of prostate; I10 Essential (primary) hypertension; E11.9 Type 2 diabetes mellitus without complications; E55.9 Vitamin D deficiency, unspecified; D64.9 Anemia, unspecified; R00.2 Palpitations; R53.1 Weakness; R30.0 Dysuria
CPT/HCPCS: 36415; 80048; 80061; 80076; 82306; 83036; 83880; 84153; 84403; 84443; 85025

== ENCOUNTER → 2020-04-28 | Outpatient (CLI) | payer MEDICARE, OTHER | END | disposition home or self-care (01) | LOC: Rad HDHVI 10:03 | PROVIDERS: ATTEND Internal Medicine Cardiovascular Disease | DX: I50.33 Acute on chronic diastolic (congestive) heart failure (principal); I49.5 Sick sinus syndrome | CPT/HCPCS: 93306 ==

== ENCOUNTER → 2021-02-02 | Outpatient (CLI) | payer MEDICARE, OTHER ==
[~2021-02-02] VITALS: Ht 172.7 cm; Wt 88.5 kg
[~2021-02-02] MED LIST changes: +ADENOSINE 74 MG in GIVE UN-DILUTED 0 ML IV ONE; +ADENOSINE 90 MG/30 ML INJ IV ONE
[2021-02-02 11:39] LABS: Basophils # (auto) 0 10 ^3/uL (0-0.2); Basophils % (auto) 0.3 % (0.0-2.0); Eosinophils # (auto) 0.1 10 ^3/uL (0-0.8); Eosinophils % (auto) 0.5 % (0.0-7.0); Hematocrit 41.2 % (41.0-53.0); Hemoglobin 14.3 g/dL (13.5-17.5); Lymphocytes # (auto) 5.9 10 ^3/uL (0.4-5.4); Lymphocytes % (auto) 49.7 % (10.0-50.0); Mean Corpuscular Hemoglobin 31.7 pg (28.0-32.0); Mean Corpuscular Hgb Conc. 34.6 g/dL (32.0-36.0); Mean Corpuscular Volume 91.8 fL (80.0-100.0); Monocytes # (auto) 0.7 10 ^3/uL (0-1.3); Monocytes % (auto) 5.5 % (0.0-12.0); Neutrophils # (auto) 5.2 10 ^3/uL (1.6-8.6); Nucleated Red Blood Cells % 0.1 %; Red Blood Cells 4.49 10^6/uL (4.5-5.90); Red Cell Distribution Width 15.8 % (11.8-14.3); White Blood Cell 11.9 10^3/uL (4.4-10.8)
[2021-02-02 11:41] LABS: Albumin 3.3 g/dL (3.4-5.0); Calcium 8.8 mg/dL (8.5-10.1)
[2021-02-02 11:44] LABS: Urine Blood Negative /uL (Negative); Urine Specific Gravity 1.019 (1.001-1.035)
[2021-02-02 11:47] LABS: BUN/Creatinine Ratio 12.4; Bilirubin, Total 0.4 mg/dL (0.2-1.0); Total Protein 8.6 g/dL (6.4-8.2)
[2021-02-02 12:20] LABS: Free T4 (Free Thyroxine) 1.1 ng/dL (0.89-1.76); Prostate Specific Antigen 1.15 ng/mL (0.0-4.0)
== END | disposition home or self-care (01) ==
LOC: Rad HDHVI 07:49
PROVIDERS: ATTEND Internal Medicine Cardiovascular Disease
DX: C61 Malignant neoplasm of prostate (principal); I25.10 Atherosclerotic heart disease of native coronary artery without angina pectoris; I10 Essential (primary) hypertension; E78.5 Hyperlipidemia, unspecified; I25.2 Old myocardial infarction; D51.3 Other dietary vitamin B12 deficiency anemia; E11.9 Type 2 diabetes mellitus without complications; E55.9 Vitamin D deficiency, unspecified; D64.9 Anemia, unspecified; R00.2 Palpitations; R53.1 Weakness; R30.0 Dysuria; Z82.49 Family history of ischemic heart disease and other diseases of the circulatory system
CPT/HCPCS: 36415; 78452; 80053; 80061; 81003; 82306; 82607; 83036; 84153; 84403; 84439; 84443; 85025; 93005; 96374; 96375; A9500; J0153

== ENCOUNTER → 2021-04-01 | Outpatient (CLI) | payer MEDICARE, OTHER ==
[~2021-04-01] MED LIST changes: -ADENOSINE 74 MG in GIVE UN-DILUTED 0 ML IV ONE; -ADENOSINE 90 MG/30 ML INJ IV ONE
[2021-04-01 11:26] LABS: Hematocrit 40.4 % (41.0-53.0); Hemoglobin 13.7 g/dL (13.5-17.5); Mean Corpuscular Hemoglobin 31.5 pg (28.0-32.0); Mean Corpuscular Volume 92.6 fL (80.0-100.0); Red Blood Cells 4.36 10^6/uL (4.5-5.90); Red Cell Distribution Width 15.2 % (11.8-14.3)
[2021-04-01 11:29] LABS: Basophils % (manual) 0 (0.0-2.0); Blast Cells 0; Eosinophils % (manual) 0 (0-7); Metamyelocytes % 0; Myelocytes % 0; Promyelocytes % 0; Reactive Lymphocytes 0
[2021-04-01 12:24] LABS: Band Neutrophils % (manual) 2; Lymphocytes % (manual) 67 (10.0-50.0); Monocytes % (manual) 1 (0-12); Potassium 3.9 mmol/L (3.5-5.1)
[2021-04-01 12:34] LABS: Albumin 3.2 g/dL (3.4-5.0); BUN/Creatinine Ratio 19.5; Bilirubin, Total 0.3 mg/dL (0.2-1.0); Calcium 8.6 mg/dL (8.5-10.1); Total Protein 7.8 g/dL (6.4-8.2)
== END | disposition home or self-care (01) ==
LOC: CHF HDHVI 08:23
PROVIDERS: ATTEND Internal Medicine Cardiovascular Disease
DX: I10 Essential (primary) hypertension (principal); D64.9 Anemia, unspecified
CPT/HCPCS: 36415; 80053; 85007; 85027

== ENCOUNTER → 2021-04-15 | Outpatient (CLI) | payer MEDICARE, OTHER ==
[~2021-04-15] MED LIST changes: +IOHEXOL 350 MG/ML 100ML IJ ONE; +READI-CAT 2 (BARIUM SULF)(VANILLA SMOOTHIE) 450ML ONE
[2021-04-15 09:58] VITALS: BP 120/73
[2021-04-15 12:24] VITALS: BP 143/66
== END | disposition home or self-care (01) ==
LOC: Rad HDHVI 09:48
PROVIDERS: ATTEND Internal Medicine Cardiovascular Disease
DX: C91.10 Chronic lymphocytic leukemia of B-cell type not having achieved remission (principal); R91.1 Solitary pulmonary nodule; J43.9 Emphysema, unspecified; K80.20 Calculus of gallbladder without cholecystitis without obstruction; K57.30 Diverticulosis of large intestine without perforation or abscess without bleeding; R59.0 Localized enlarged lymph nodes; M46.00 Spinal enthesopathy, site unspecified; I70.0 Atherosclerosis of aorta; I25.10 Atherosclerotic heart disease of native coronary artery without angina pectoris; R94.4 Abnormal results of kidney function studies
CPT/HCPCS: 36415; 71260; 74177; 82565; G0463; Q9967

== ENCOUNTER → 2021-11-18 | Outpatient (CLI) | payer MEDICARE, OTHER ==
[~2021-11-18] MED LIST changes: -READI-CAT 2 (BARIUM SULF)(VANILLA SMOOTHIE) 450ML ONE
[2021-11-18 11:08] VITALS: BP 154/70
[2021-11-18 12:54] VITALS: BP 138/74
== END | disposition home or self-care (01) ==
LOC: Rad HDHVI 11:00
PROVIDERS: ATTEND Internal Medicine
DX: I67.82 Cerebral ischemia (principal); I67.89 Other cerebrovascular disease; R90.82 White matter disease, unspecified; R94.4 Abnormal results of kidney function studies; R51.9 Headache, unspecified
CPT/HCPCS: 36415; 70470; 82565; 84520; G0463; Q9967

== ENCOUNTER → 2022-01-05 | Outpatient (CLI) | payer MEDICARE, OTHER ==
[~2022-01-05] MED LIST changes: -IOHEXOL 350 MG/ML 100ML IJ ONE
== END | disposition home or self-care (01) ==
LOC: Rad HDHVI 09:41
PROVIDERS: ATTEND Internal Medicine Cardiovascular Disease
DX: I08.0 Rheumatic disorders of both mitral and aortic valves (principal); R06.02 Shortness of breath; I10 Essential (primary) hypertension
CPT/HCPCS: 93306

== ENCOUNTER → 2022-01-11 | Outpatient (CLI) | payer MEDICARE, OTHER ==
[~2022-01-11] VITALS: Ht 172.7 cm; Wt 81.6 kg
[~2022-01-11] MED LIST changes: +ADENOSINE 69 MG in GIVE UN-DILUTED 0 ML IV ONE; +ADENOSINE 90 MG/30 ML INJ IV ONE
== END | disposition home or self-care (01) ==
LOC: Rad HDHVI 13:28
PROVIDERS: ATTEND Internal Medicine Cardiovascular Disease
DX: I11.0 Hypertensive heart disease with heart failure (principal); I95.9 Hypotension, unspecified; I25.10 Atherosclerotic heart disease of native coronary artery without angina pectoris; I50.43 Acute on chronic combined systolic (congestive) and diastolic (congestive) heart failure; R42 Dizziness and giddiness; I10 Essential (primary) hypertension; E78.5 Hyperlipidemia, unspecified; E66.01 Morbid (severe) obesity due to excess calories; Z95.0 Presence of cardiac pacemaker; Z82.49 Family history of ischemic heart disease and other diseases of the circulatory system; Z79.899 Other long term (current) drug therapy
CPT/HCPCS: 78452; 93005; 96374; 96375; A9500; J0153

== ENCOUNTER → 2022-03-28 | Outpatient (CLI) | payer MEDICARE, OTHER ==
[~2022-03-28] VITALS: Ht 172.7 cm; Wt 74.8 kg
[~2022-03-28] MED LIST changes: -ADENOSINE 69 MG in GIVE UN-DILUTED 0 ML IV ONE; -ADENOSINE 90 MG/30 ML INJ IV ONE; +CHOL20009 PO; +HYDR-4188 PO; +IBUP400T23 PO; +LAM100T PO; +MULT1TAB95 PO; +NIAC500T71 PO; +OYST500T48 PO; +SACU1TAB PO; +TOLT2CAP PO; +TRAZ-184 PO
[2022-03-28 12:54] LABS: Urine Bacteria NONE SEEN /hpf (None Seen); Urine Blood Negative /uL (Negative); Urine Specific Gravity 1.004 (1.001-1.035); Urine WBC <1 /hpf (0 - 3)
[2022-03-28 13:00] LABS: Basophils # (auto) 0 10 ^3/uL (0-0.2); Basophils % (auto) 0.2 % (0.0-2.0); Eosinophils # (auto) 0 10 ^3/uL (0-0.8); Eosinophils % (auto) 0.3 % (0.0-7.0); Hematocrit 42.2 % (41.0-53.0); Hemoglobin 14.1 g/dL (13.5-17.5); Lymphocytes # (auto) 5.7 10 ^3/uL (0.4-5.4); Lymphocytes % (auto) 48.6 % (10.0-50.0); Mean Corpuscular Hgb Conc. 33.4 g/dL (32.0-36.0); Mean Corpuscular Volume 92.6 fL (80.0-100.0); Monocytes # (auto) 0.7 10 ^3/uL (0-1.3); Monocytes % (auto) 6.2 % (0.0-12.0); Neutrophils # (auto) 5.3 10 ^3/uL (1.6-8.6); Neutrophils % (auto) 44.7 % (37.0-80.0); Nucleated Red Blood Cells % 0.2 %; Red Blood Cells 4.56 10^6/uL (4.5-5.90); Red Cell Distribution Width 13.7 % (11.8-14.3); White Blood Cell 11.8 10^3/uL (4.4-10.8)
[2022-03-28 13:19] LABS: Albumin 3.8 g/dL (3.4-5.0); Calcium 8.6 mg/dL (8.5-10.1); Potassium 4.5 mmol/L (3.5-5.1)
[2022-03-28 13:22] LABS: BUN/Creatinine Ratio 10.1; Bilirubin, Total 0.5 mg/dL (0.2-1.0); Total Protein 7.9 g/dL (6.4-8.2)
[2022-03-28 13:44] LABS: INR 0.98 (0.9-1.15); Partial Thromboplastin Time 26.4 sec (24.6-33.4)
== END | disposition home or self-care (01) ==
LOC: GI 12:13 → EDSTATUS 03-30 13:43
PROVIDERS: ATTEND Internal Medicine Gastroenterology
DX: R10.13 Epigastric pain (principal); R53.83 Other fatigue; Z20.822 Contact with and (suspected) exposure to COVID-19; Z53.8 Procedure and treatment not carried out for other reasons
CPT/HCPCS: 36415; 80053; 81001; 85025; 85610; 85730; U0003

== ENCOUNTER 2022-05-04 09:11 | Day surgery (SDC) | payer MEDICARE, OTHER ==
[2022-05-02 13:29] LABS: Hemoglobin 14.6 g/dL (13.5-17.5); Mean Corpuscular Volume 91.3 fL (80.0-100.0); Red Blood Cells 4.71 10^6/uL (4.5-5.90); Red Cell Distribution Width 13.4 % (11.8-14.3); White Blood Cell 11.1 10^3/uL (4.4-10.8)
[2022-05-02 13:40] LABS: Urine Bacteria NONE SEEN /hpf (None Seen); Urine Blood Negative /uL (Negative); Urine Mucus FEW (None Seen); Urine Specific Gravity 1.022 (1.001-1.035); Urine WBC 1 /hpf (0 - 3)
[2022-05-02 13:45] LABS: INR 0.99 (0.9-1.15)
[2022-05-02 13:57] LABS: Band Neutrophils % (manual) 0; Basophils % (manual) 0 (0.0-2.0); Blast Cells 0; Eosinophils % (manual) 0 (0-7); Myelocytes % 0; Promyelocytes % 0
[2022-05-02 14:04] LABS: Albumin 3.6 g/dL (3.4-5.0); Calcium 8.9 mg/dL (8.5-10.1); Potassium 3.9 mmol/L (3.5-5.1)
[2022-05-02 14:19] LABS: BUN/Creatinine Ratio 22.2; Bilirubin, Total 0.4 mg/dL (0.2-1.0); Total Protein 8.6 g/dL (6.4-8.2)
[2022-05-02 14:47] LABS: Lymphocytes % (manual) 31 (10.0-50.0); Metamyelocytes % 4; Monocytes % (manual) 4 (0-12); Reactive Lymphocytes 5
[~2022-05-04 09:11] MED LIST changes: -HYDR-4188 PO; -IBU800T PO; -LAMO150T2 PO; -TRAZ100T3 PO
[2022-05-04] MEDS ORDERED: fentaNYL CITRATE 100 MCG/2 ML VL ONE (12:27)
[2022-05-04] MEDS ORDERED: MIDAZOLAM HCL 2MG/2ML 2ml VIAL (1mg/ml) ONE (12:27)
[2022-05-04] MEDS ORDERED: PROPOFOL 10 MG/ML 20 ML IV ONE (12:58)
[2022-05-04] MEDS ORDERED: ONDANSETRON HCL 4 MG/2 ML VIAL ONE (12:58)
[2022-05-04 13:34] VITALS: BP 143/69
[2022-05-04] MEDS ORDERED: ONDANSETRON HCL 4 MG/2 ML VIAL IV PRN (14:45)
== END 2022-05-04 13:40 | disposition home or self-care (01) ==
LOC: GI 09:11
PROVIDERS: ATTEND Internal Medicine Gastroenterology
DX: K57.30 Diverticulosis of large intestine without perforation or abscess without bleeding (principal); K64.8 Other hemorrhoids; R10.13 Epigastric pain; K29.80 Duodenitis without bleeding; K29.50 Unspecified chronic gastritis without bleeding; R53.83 Other fatigue; I10 Essential (primary) hypertension; Z79.899 Other long term (current) drug therapy; F32.A Depression, unspecified; K63.5 Polyp of colon; Z20.822 Contact with and (suspected) exposure to COVID-19; Z95.810 Presence of automatic (implantable) cardiac defibrillator; Z98.41 Cataract extraction status, right eye; Z98.42 Cataract extraction status, left eye; Z87.891 Personal history of nicotine dependence
CPT/HCPCS: 36415; 45380; 45385; 80053; 81001; 85007; 85027; 85610; 85730; 88305; 88342; J2250; J2405; J2704; J3010; J7030; U0003

== ENCOUNTER → 2022-08-31 | Outpatient (CLI) | payer MEDICARE, OTHER | END | disposition home or self-care (01) | LOC: Rad HDHVI 10:47 | PROVIDERS: ATTEND Internal Medicine Cardiovascular Disease | DX: I51.7 Cardiomegaly (principal); R07.89 Other chest pain; R06.02 Shortness of breath | CPT/HCPCS: 93306 ==

== ENCOUNTER → 2022-10-05 | Outpatient (CLI) | payer MEDICARE, OTHER | END | disposition home or self-care (01) | LOC: Rad HDHVI 13:11 | PROVIDERS: ATTEND Internal Medicine Cardiovascular Disease | DX: I65.22 Occlusion and stenosis of left carotid artery (principal); I10 Essential (primary) hypertension; E78.5 Hyperlipidemia, unspecified | CPT/HCPCS: 93880 ==

== ENCOUNTER → 2023-03-07 | Outpatient (CLI) | payer MEDICARE, OTHER ==
[~2023-03-07] MED LIST changes: +FAMO20TA10 PO; +FLUT250M2 INH; +IBUP1TAB4 PO; -IBUP400T23 PO; +NITR0.4S29 SL; +OYST1TAB PO; -OYST500T48 PO; +PREG50CA PO
[2023-03-07 08:28] VITALS: BP 157/74; PULSE 71; RESP 16; O2SAT 96
[2023-03-07 08:41] VITALS: BP 149/70; PULSE 69; RESP 16; O2SAT 96
== END | disposition home or self-care (01) ==
LOC: Rad HDHVI 08:14
PROVIDERS: ATTEND Internal Medicine Cardiovascular Disease
DX: Z01.818 Encounter for other preprocedural examination (principal); R94.31 Abnormal electrocardiogram [ECG] [EKG]; I73.9 Peripheral vascular disease, unspecified; Z95.0 Presence of cardiac pacemaker
CPT/HCPCS: 71046; 93005; G0463; 36415; 80048; 85025; 85610; 85730

== ENCOUNTER 2023-03-08 08:19 | Day surgery (SDC) | payer MEDICARE, OTHER ==
[2023-03-07 09:23] LABS: Basophils # (auto) 0 10 ^3/uL (0-0.2); Basophils % (auto) 0.8 % (0.0-2.0); Eosinophils # (auto) 0.1 10 ^3/uL (0-0.8); Eosinophils % (auto) 1.6 % (0.0-7.0); Hematocrit 39.1 % (41.0-53.0); Hemoglobin 13.7 g/dL (13.5-17.5); Lymphocytes # (auto) 0.5 10 ^3/uL (0.4-5.4); Lymphocytes % (auto) 15.3 % (10.0-50.0); Mean Corpuscular Hemoglobin 31.8 pg (28.0-32.0); Mean Corpuscular Volume 90.9 fL (80.0-100.0); Monocytes # (auto) 0.5 10 ^3/uL (0-1.3); Monocytes % (auto) 14.9 % (0.0-12.0); Neutrophils # (auto) 2.3 10 ^3/uL (1.6-8.6); Neutrophils % (auto) 67.4 % (37.0-80.0); Nucleated Red Blood Cells % 0.1 %; Red Cell Distribution Width 13.7 % (11.8-14.3); White Blood Cell 3.4 10^3/uL (4.4-10.8)
[2023-03-07 09:54] LABS: INR 1.04 (0.9-1.15); Partial Thromboplastin Time 27.3 SEC (24.5-34.5); Prothrombin Time 10.9 sec (9.3-11.8)
[2023-03-07 10:03] LABS: Anion Gap 5.9 (5-15); Calcium 9.4 mg/dL (8.5-10.1); Carbon Dioxide 30.1 mmol/L (20-30); Chloride 106 mmol/L (98-107); Potassium 4.1 mmol/L (3.5-5.1); Sodium 142 mmol/L (136-145)
[2023-03-07 10:09] LABS: BUN/Creatinine Ratio 9.9 (10.0-20.0); Blood Urea Nitrogen 10 mg/dL (9-23); Glucose 93 mg/dL (74-106)
[~2023-03-08] VITALS: Ht 172.7 cm; Wt 81.6 kg
[2023-03-08] VITALS (8 sets, daily range): BP systolic 92–145; BP diastolic 55–77; PULSE 62–88; RESP 12–14; TEMP 97.4; O2SAT 92–95
[~2023-03-08 08:19] MED LIST changes: -SACU1TAB PO
[2023-03-08] MEDS ORDERED: SODIUM CHL 0.9% 0 ML ONE (09:55)
[2023-03-08] MEDS ORDERED: fentaNYL CITRATE 100 MCG/2 ML VL ONE (09:55)
[2023-03-08] MEDS ORDERED: LIDOCAINE 2%HCL (LOCAL ANESTH.) INJ 20ML MDV ONE ×2 (09:55→10:30)
[2023-03-08] MEDS ORDERED: MIDAZOLAM HCL 2MG/2ML 2ml VIAL (1mg/ml) ONE (09:55)
[2023-03-08] MEDS ORDERED: ANGIOMAX 250 MG VIAL IV ONE (09:55)
[2023-03-08] MEDS ORDERED: IOHEXOL 350 MG/ML 100ML IJ ONE (09:56)
== END 2023-03-08 13:20 | disposition home or self-care (01) ==
LOC: CATH 08:19
PROVIDERS: ATTEND Internal Medicine Cardiovascular Disease
DX: I70.213 Atherosclerosis of native arteries of extremities with intermittent claudication, bilateral legs (principal); T82.856A Stenosis of peripheral vascular stent, initial encounter; I10 Essential (primary) hypertension; E78.5 Hyperlipidemia, unspecified; I25.2 Old myocardial infarction; Z87.891 Personal history of nicotine dependence; J44.9 Chronic obstructive pulmonary disease, unspecified; M19.90 Unspecified osteoarthritis, unspecified site; I49.5 Sick sinus syndrome; Y83.8 Other surgical procedures as the cause of abnormal reaction of the patient, or of later complication, without mention of misadventure at the time of the procedure; Z79.899 Other long term (current) drug therapy; Z98.890 Other specified postprocedural states
CPT/HCPCS: 36415; 37220; 75716; 80048; 85025; 85610; 85730; C1760; C1769; C1887; C1894; J1644; J2250; J3010; Q9967; 99152

== ENCOUNTER → 2023-04-09 | Outpatient (CLI) | payer MEDICARE, OTHER ==
[~2023-04-09] MED LIST changes: +SACU1TAB PO
[2023-04-09 11:28] VITALS: BP 134/63; PULSE 71; RESP 18; O2SAT 95
[2023-04-09 11:40] VITALS: BP 136/61; PULSE 65; RESP 18; O2SAT 95
== END | disposition home or self-care (01) ==
LOC: CHF HDHVI 11:17
PROVIDERS: ATTEND Internal Medicine Cardiovascular Disease
DX: Z01.818 Encounter for other preprocedural examination (principal); R94.31 Abnormal electrocardiogram [ECG] [EKG]; I73.9 Peripheral vascular disease, unspecified; M79.2 Neuralgia and neuritis, unspecified
CPT/HCPCS: 93005; G0463

== ENCOUNTER → 2023-12-05 | Outpatient (CLI) | payer MEDICARE, OTHER | END | disposition home or self-care (01) | LOC: Rad HDHVI 08:00 | PROVIDERS: ATTEND Internal Medicine Cardiovascular Disease | DX: I73.9 Peripheral vascular disease, unspecified (principal); E78.5 Hyperlipidemia, unspecified | CPT/HCPCS: 93925 ==

== ENCOUNTER → 2024-01-21 | Outpatient (CLI) | payer MEDICARE, OTHER ==
[~2024-01-21] MED LIST changes: +ATOR10TA52 PO; +CALCTAB28 PO; +ESCI10TA PO; +IBUP-1453 PO; +LAMO25TA2 PO; +LEVO88TA4 PO; +MULT-1018 PO; +TRAZ150T84 PO
[2024-01-21 10:16] VITALS: BP 174/82; PULSE 71; RESP 16; O2SAT 94
[2024-01-21 10:23] VITALS: BP 168/79; PULSE 69; RESP 16; O2SAT 94
== END | disposition home or self-care (01) ==
LOC: Rad HDHVI 10:06
PROVIDERS: ATTEND Internal Medicine Cardiovascular Disease
DX: Z01.818 Encounter for other preprocedural examination (principal); I73.9 Peripheral vascular disease, unspecified; I49.1 Atrial premature depolarization
CPT/HCPCS: 71046; 93005; G0463

== ENCOUNTER 2024-01-24 07:04 | Day surgery (SDC) | payer MEDICARE, OTHER ==
[2024-01-21 12:41] LABS: Basophils # (auto) 0 10 ^3/uL (0-0.2); Basophils % (auto) 0.8 % (0.0-2.0); Eosinophils # (auto) 0.1 10 ^3/uL (0-0.8); Eosinophils % (auto) 1.1 % (0.0-7.0); Hematocrit 39.8 % (41.0-53.0); Hemoglobin 13.8 g/dL (13.5-17.5); Lymphocytes # (auto) 0.8 10 ^3/uL (0.4-5.4); Lymphocytes % (auto) 19.1 % (10.0-50.0); Mean Corpuscular Hgb Conc. 34.7 g/dL (32.0-36.0); Mean Corpuscular Volume 92.2 fL (80.0-100.0); Monocytes # (auto) 0.5 10 ^3/uL (0-1.3); Monocytes % (auto) 12.4 % (0.0-12.0); Neutrophils # (auto) 2.9 10 ^3/uL (1.6-8.6); Neutrophils % (auto) 66.6 % (37.0-80.0); Nucleated Red Blood Cells % 0.1 %; Red Blood Cells 4.31 10^6/uL (4.5-5.90); Red Cell Distribution Width 13.4 % (11.8-14.3); White Blood Cell 4.4 10^3/uL (4.4-10.8)
[2024-01-21 12:48] LABS: INR 1.03 (0.9-1.15); Prothrombin Time 10.9 sec (9.3-11.8)
[2024-01-21 13:31] LABS: Chloride 106 mmol/L (98-107); Potassium 4.2 mmol/L (3.5-5.1); Sodium 139 mmol/L (136-145)
[2024-01-21 13:32] LABS: Anion Gap 5 (5-15); Carbon Dioxide 28 mmol/L (20-30)
[2024-01-21 13:33] LABS: Calcium 9.2 mg/dL (8.7-10.4)
[2024-01-21 13:37] LABS: Glucose 85 mg/dL (74-106)
[2024-01-21 13:38] LABS: BUN/Creatinine Ratio 16.7 (10.0-20.0); Blood Urea Nitrogen 14 mg/dL (9-23)
[~2024-01-24] VITALS: Ht 172.7 cm; Wt 83.0 kg
[2024-01-24] MEDS ORDERED: LIDOCAINE 2%HCL (LOCAL ANESTH.) INJ 20ML MDV ONE (08:54)
[2024-01-24] MEDS ORDERED: HEPARIN IN NS 1000Units/500mL 1,500 ML ONE (08:54)
[2024-01-24] MEDS ORDERED: IOHEXOL 350 MG/ML 100ML IJ ONE (08:54)
[2024-01-24] MEDS ORDERED: ANGIOMAX 250 MG VIAL IV ONE (09:00)
[2024-01-24] MEDS ORDERED: fentaNYL CITRATE 100 MCG/2 ML VL ONE (09:00)
[2024-01-24] MEDS ORDERED: SODIUM CHL 0.9% 50 ML ONE (09:01)
[2024-01-24] MEDS ORDERED: MIDAZOLAM HCL 2MG/2ML 2ml VIAL (1mg/ml) ONE (09:01)
[2024-01-24] MEDS: HYDROcodone-ACET 5/325MG TAB ONE (13:08)
== END 2024-01-24 15:18 | disposition home or self-care (01) ==
LOC: CATH 07:04
PROVIDERS: ATTEND Internal Medicine Cardiovascular Disease
DX: I70.312 Atherosclerosis of unspecified type of bypass graft(s) of the extremities with intermittent claudication, left leg (principal); I49.5 Sick sinus syndrome; I25.119 Atherosclerotic heart disease of native coronary artery with unspecified angina pectoris; J44.9 Chronic obstructive pulmonary disease, unspecified; F41.8 Other specified anxiety disorders; Z79.02 Long term (current) use of antithrombotics/antiplatelets; Z79.899 Other long term (current) drug therapy; Z95.5 Presence of coronary angioplasty implant and graft; Z95.0 Presence of cardiac pacemaker; Z95.1 Presence of aortocoronary bypass graft; Z87.891 Personal history of nicotine dependence; Z82.49 Family history of ischemic heart disease and other diseases of the circulatory system; Z80.0 Family history of malignant neoplasm of digestive organs; Z82.5 Family history of asthma and other chronic lower respiratory diseases; Z83.438 Family history of other disorder of lipoprotein metabolism and other lipidemia
CPT/HCPCS: 36415; 75710; 80048; 85025; 85610; 85730; C1725; C1769; C1887; C1894; C9764; J0583; J1644; J2250; J3010; Q9967; 99152

== ENCOUNTER → 2024-02-08 | Outpatient (CLI) | payer MEDICARE, OTHER ==
[~2024-02-08] MED LIST changes: -ESCI20TA PO; -FAMO20TA10 PO; -FLUT250M2 INH; -IBUP1TAB4 PO; -LAMO25TA2 PO; -MULT1TAB95 PO; -NIAC500T71 PO; -OYST1TAB PO; -SACU1TAB PO; -TRAZ-184 PO
[2024-02-08 10:33] VITALS: BP 131/64; PULSE 72; RESP 16; O2SAT 95
[2024-02-08 12:02] VITALS: BP 126/65; PULSE 71; RESP 16; O2SAT 95
== END | disposition home or self-care (01) ==
LOC: Rad HDHVI 10:56
PROVIDERS: ATTEND Internal Medicine Cardiovascular Disease
DX: I25.10 Atherosclerotic heart disease of native coronary artery without angina pectoris (principal); I70.201 Unspecified atherosclerosis of native arteries of extremities, right leg; I51.7 Cardiomegaly; I70.0 Atherosclerosis of aorta; K80.20 Calculus of gallbladder without cholecystitis without obstruction
CPT/HCPCS: 75635; G0463; Q9967

== ENCOUNTER → 2024-03-03 | Outpatient (CLI) | payer MEDICARE, OTHER ==
[~2024-03-03] MED LIST changes: +CHOL20002 PO; +FAMO20TA10 PO; +IBUP200C3 PO; +PANT40TA2 PO; +TRAM100C PO; +VERI5TAB PO
[2024-03-03 12:00] VITALS: BP 151/76; PULSE 82; RESP 16; O2SAT 96
[2024-03-03 12:43] VITALS: BP 137/68; PULSE 69; RESP 18; O2SAT 96
== END | disposition home or self-care (01) ==
LOC: Rad HDHVI 11:59
PROVIDERS: ATTEND Internal Medicine Cardiovascular Disease
DX: Z01.818 Encounter for other preprocedural examination (principal); R94.31 Abnormal electrocardiogram [ECG] [EKG]; I73.9 Peripheral vascular disease, unspecified
CPT/HCPCS: 71046; 93005; G0463

== ENCOUNTER 2024-03-06 08:05 | Day surgery (SDC) | payer MEDICARE, OTHER ==
[2024-03-03 14:15] LABS: Basophils # (auto) 0 10 ^3/uL (0-0.2); Basophils % (auto) 0.8 % (0.0-2.0); Eosinophils # (auto) 0.1 10 ^3/uL (0-0.8); Eosinophils % (auto) 1.7 % (0.0-7.0); Hematocrit 41.3 % (41.0-53.0); Hemoglobin 14.5 g/dL (13.5-17.5); Lymphocytes # (auto) 0.9 10 ^3/uL (0.4-5.4); Lymphocytes % (auto) 21.1 % (10.0-50.0); Mean Corpuscular Hemoglobin 32.2 pg (28.0-32.0); Monocytes # (auto) 0.5 10 ^3/uL (0-1.3); Monocytes % (auto) 10.7 % (0.0-12.0); Neutrophils # (auto) 2.9 10 ^3/uL (1.6-8.6); Neutrophils % (auto) 65.7 % (37.0-80.0); Platelet Count (auto) 151 10^3/uL (140-450); Red Blood Cells 4.49 10^6/uL (4.5-5.90); Red Cell Distribution Width 13.7 % (11.8-14.3); White Blood Cell 4.4 10^3/uL (4.4-10.8)
[2024-03-03 14:32] LABS: Chloride 106 mmol/L (98-107); Sodium 140 mmol/L (136-145)
[2024-03-03 14:33] LABS: Anion Gap 3 (5-15); Carbon Dioxide 31 mmol/L (20-30)
[2024-03-03 14:34] LABS: Calcium 9.6 mg/dL (8.7-10.4)
[2024-03-03 14:36] LABS: Partial Thromboplastin Time 26.9 SEC (24.5-34.5); Prothrombin Time 10.6 sec (9.3-11.8)
[2024-03-03 14:38] LABS: BUN/Creatinine Ratio 13.4 (10.0-20.0); Blood Urea Nitrogen 13 mg/dL (9-23); Glucose 89 mg/dL (74-106)
[~2024-03-06] VITALS: Ht 172.7 cm; Wt 84.4 kg
[~2024-03-06 08:05] MED LIST changes: -CHOL20002 PO; -TRAM50TA2 PO
[2024-03-06] MEDS ORDERED: IOHEXOL 350 MG/ML 100ML IJ ONE ×2 (10:04→10:20)
[2024-03-06] MEDS ORDERED: LIDOCAINE 2%HCL (LOCAL ANESTH.) INJ 20ML MDV ONE ×2 (10:04→10:46)
[2024-03-06] MEDS ORDERED: fentaNYL CITRATE 100 MCG/2 ML VL ONE (10:11)
[2024-03-06] MEDS ORDERED: SODIUM CHL 0.9% 0 ML ONE (10:11)
[2024-03-06] MEDS ORDERED: MIDAZOLAM HCL 2MG/2ML 2ml VIAL (1mg/ml) ONE (10:11)
[2024-03-06] MEDS ORDERED: ANGIOMAX 250 MG VIAL IV ONE (10:11)
== END 2024-03-06 13:35 | disposition home or self-care (01) ==
LOC: CATH 08:05
PROVIDERS: ATTEND Internal Medicine Cardiovascular Disease
DX: I70.201 Unspecified atherosclerosis of native arteries of extremities, right leg (principal); Z53.8 Procedure and treatment not carried out for other reasons; I70.302 Unspecified atherosclerosis of unspecified type of bypass graft(s) of the extremities, left leg; I10 Essential (primary) hypertension; I20.0 Unstable angina; J44.9 Chronic obstructive pulmonary disease, unspecified; F41.8 Other specified anxiety disorders; F43.10 Post-traumatic stress disorder, unspecified; Z95.1 Presence of aortocoronary bypass graft; Z95.5 Presence of coronary angioplasty implant and graft; Z87.891 Personal history of nicotine dependence; Z82.49 Family history of ischemic heart disease and other diseases of the circulatory system; Z80.0 Family history of malignant neoplasm of digestive organs; Z83.6 Family history of other diseases of the respiratory system; Z80.1 Family history of malignant neoplasm of trachea, bronchus and lung; Z83.438 Family history of other disorder of lipoprotein metabolism and other lipidemia
CPT/HCPCS: 36140; C1769; C1894; J1644; J2250; J3010; Q9967; 36415; 80048; 85025; 85610; 85730; 99152; 99153

== ENCOUNTER → 2024-06-30 | Outpatient (CLI) | payer MEDICARE, OTHER | END | disposition home or self-care (01) | LOC: Rad HDHVI 08:52 | PROVIDERS: ATTEND Internal Medicine Cardiovascular Disease | DX: I11.0 Hypertensive heart disease with heart failure (principal); I50.23 Acute on chronic systolic (congestive) heart failure | CPT/HCPCS: 93306 ==

== ENCOUNTER → 2024-07-11 | Outpatient (CLI) | payer MEDICARE, OTHER ==
[~2024-07-11] VITALS: Ht 172.7 cm; Wt 83.9 kg
[~2024-07-11] MED LIST changes: +ADENOSINE 70 MG in GIVE UN-DILUTED 0 ML IV ONE; +ADENOSINE 90 MG/30 ML INJ IV ONE
== END | disposition home or self-care (01) ==
LOC: Rad HDHVI 08:25
PROVIDERS: ATTEND Internal Medicine Cardiovascular Disease
DX: Z01.810 Encounter for preprocedural cardiovascular examination (principal); I73.9 Peripheral vascular disease, unspecified; E78.00 Pure hypercholesterolemia, unspecified; I11.0 Hypertensive heart disease with heart failure; I50.23 Acute on chronic systolic (congestive) heart failure; I25.10 Atherosclerotic heart disease of native coronary artery without angina pectoris; I25.2 Old myocardial infarction; I49.5 Sick sinus syndrome
CPT/HCPCS: 78452; 93005; 96374; 96375; A9500; J0153

== ENCOUNTER → 2024-11-17 | Outpatient (CLI) | payer MEDICARE, OTHER ==
[~2024-11-17] MED LIST changes: -ADENOSINE 70 MG in GIVE UN-DILUTED 0 ML IV ONE; -ADENOSINE 90 MG/30 ML INJ IV ONE; +IOHEXOL 350 MG/ML 100ML IJ ONE
[2024-11-17 09:16] VITALS: BP 153/72; PULSE 66; RESP 16; O2SAT 97
[2024-11-17 09:38] VITALS: BP 151/73; PULSE 73; RESP 16; O2SAT 97
--- NOTE | 2024-11-17 15:40 | DVH ---
Examination: CT ANGIO ABDOMINAL WITH RUN CLINICAL HISTORY: CLAUDICATION Comparison: None Technique: Using helical technique, CT data from the abdomen through the toes was obtained during rap id IV contrast infusion of 100 cc Omni 350. The examination was timed to the arterial system to gener ate a CT angiographic study. 3D images were generated at an independent work station. Dose reduction techniques included automated exposure control. Radiation Dose Information: CT Dose: CTDI volume is 9.75 mGy. Dose-length product is 1269.21 mGy*cm Findings: Diffuse calcified atherosclerotic disease. Abdominal aorta: Normal caliber, patent Celiac artery: Patent SMA: Patent Renal arteries: Patent ASYA: Patent Right lower extremity: Common iliac artery: Patent stent External iliac artery: Patent Internal iliac artery: Occluded Common femoral artery: Patent Profunda femoral artery: High-grade stenosis. Superficial femoral artery: Occluded Popliteal artery: Patent Anterior tibial artery: Densely calcified appears patent. Peroneal tibial trunk: Patent Peroneal artery: Patent. Posterior tibial artery: Densely calcified appears patent. Dorsalis pedis artery: Densely calcified. Left lower extremity: Common iliac artery: Patent stent External iliac artery: Patent Internal iliac artery: High-grade stenosis or occlusion. Common femoral artery: Patent Profunda femoral artery: Patent Superficial femoral artery: [place] artery occluded. Patent fem-pop bypass graft. Popliteal artery: High-grade stenosis proximally. Anterior tibial artery: Patent Peroneal tibial trunk: Patent Peroneal artery: Densely calcified. Appears patent. Posterior tibial artery: Densely calcified. Appears patent. Dorsalis pedis artery: Patent Abdomen/Pelvis: Liver: Visualized liver appears unremarkable. Biliary System: Gallbladder: Cholelithiasis. Spleen: Visualized spleen appears unremarkable Pancreas: No masses or ductal dilation. Adrenals: Visualized adrenal glands appear unremarkable Urinary System: Kidneys and Ureters: Bilateral renal cyst. No hydronephrosis. Bladder: Normal. GI System: Visualized small and large bowel is nondilated. Appendix not identified. Sigmoid diverticu losis. Lymph nodes: No lymphadenopathy. Peritoneal cavity and surface: No free fluid. No pneumoperitoneum. Soft Tissues: Normal. Reproductive Organs: Normal. Bones: No acute fracture or aggressive osseous lesion. Impression: Vascular: 1. Advanced atherosclerotic disease. No abdominal aortic aneurysm. Vascular surgery evaluation is rec ommended. Right Lower Extremity: 1. Patent inflow 2. Occluded right superficial femoral artery. 3. Limited evaluation of the aktwl-nls-oanr arteries. Suspect a 3-vessel runoff to the right foot. Left Lower Extremity: 1. Patent inflow 2. Patent left fem-pop bypass graft. 3. Limited evaluation of the gfoqi-cni-fwhx arteries. Suspect a 3-vessel runoff to the left foot. Abdomen/Pelvis: 1. No acute abdominal pelvic process. Cholelithiasis. Bilateral renal cysts. Sigmoid diverticulosis. HS:Y
== END | disposition home or self-care (01) ==
LOC: Rad HDHVI 08:57
PROVIDERS: ATTEND Internal Medicine Cardiovascular Disease
DX: I70.201 Unspecified atherosclerosis of native arteries of extremities, right leg (principal); K80.20 Calculus of gallbladder without cholecystitis without obstruction; N28.1 Cyst of kidney, acquired; K57.30 Diverticulosis of large intestine without perforation or abscess without bleeding
CPT/HCPCS: 75635; G0463; Q9967

== ENCOUNTER 2024-12-18 10:15 | Outpatient (CLI) | payer MEDICARE, OTHER ==
[~2024-12-18 10:15] MED LIST changes: -IOHEXOL 350 MG/ML 100ML IJ ONE
--- NOTE | 2024-12-18 12:20 | DVH ---
EXAM: XY CHEST TWO VIEWS ROUTINE CLINICAL HISTORY: Pain COMPARISON: XY CHEST TWO VIEWS ROUTINE on DOS: 03/03/24, XY CHEST TWO VIEWS ROUTINE on DOS: 01/21/24, X Y CHEST TWO VIEWS ROUTINE on DOS: 03/07/23 TECHNIQUE: Frontal and lateral view of the chest was obtained FINDINGS: Lines and Tubes: Cardiac pacemaker projects over left chest wall. Lungs: No focal consolidation. Pleura: No effusion. No pneumothorax. Cardiomediastinal contours: Unremarkable. Atherosclerotic vascular calcifications of the thoracic ao rta are noted. Bones: No acute osseous abnormality. IMPRESSION: No acute cardiopulmonary disease.
== END 2024-12-18 17:00 | disposition home or self-care (01) ==
LOC: Rad HDHVI 10:15
PROVIDERS: ATTEND Internal Medicine Cardiovascular Disease
DX: Z01.818 Encounter for other preprocedural examination (principal); I25.119 Atherosclerotic heart disease of native coronary artery with unspecified angina pectoris; I70.0 Atherosclerosis of aorta
CPT/HCPCS: 71046

== ENCOUNTER 2024-12-29 06:17 | Inpatient (IN) | payer MEDICARE, OTHER ==
[2024-12-25 10:59] LABS: Urine Bacteria None Seen /hpf (None Seen)
[2024-12-25 11:06] LABS: Basophils # (auto) 0 10 ^3/uL (0-0.2); Basophils % (auto) 0.8 % (0.0-2.0); Eosinophils # (auto) 0.1 10 ^3/uL (0-0.8); Eosinophils % (auto) 1.3 % (0.0-7.0); Hematocrit 38.6 % (41.0-53.0); Hemoglobin 13.4 g/dL (13.5-17.5); Lymphocytes # (auto) 0.7 10 ^3/uL (0.4-5.4); Lymphocytes % (auto) 16.5 % (10.0-50.0); Mean Corpuscular Hemoglobin 31.6 pg (28.0-32.0); Mean Corpuscular Hgb Conc. 34.7 g/dL (32.0-36.0); Mean Corpuscular Volume 91.2 fL (80.0-100.0); Monocytes # (auto) 0.5 10 ^3/uL (0-1.3); Monocytes % (auto) 12.4 % (0.0-12.0); Neutrophils # (auto) 2.9 10 ^3/uL (1.6-8.6); Platelet Count (auto) 155 10^3/uL (140-450); Red Blood Cells 4.23 10^6/uL (4.5-5.90); Red Cell Distribution Width 13.8 % (11.8-14.3); White Blood Cell 4.2 10^3/uL (4.4-10.8)
[2024-12-25 11:20] LABS: INR 1.01 (0.9-1.15); Partial Thromboplastin Time 27.7 SEC (24.5-34.5); Prothrombin Time 10.7 sec (9.3-11.8)
[2024-12-25 11:22] LABS: Urine Blood Negative /uL (Negative); Urine Clarity Clear (Clear); Urine Color Light-Yellow (Yellow); Urine Protein, UAD Negative (Negative); Urine Specific Gravity 1.013 (1.001-1.035); Urine Squamous Epithelial Cell None Seen /hpf (<5); Urine Urobilinogen Normal (Negative); Urine WBC < 1 /HPF (0-3); Urine pH 6.5 (5.0-9.0)
[2024-12-25 11:35] LABS: Alanine Aminotransferase 21 U/L (7-40); Alkaline Phosphatase 86 U/L (46-116); Anion Gap 7 (5-15); BUN/Creatinine Ratio 8.3 (10.0-20.0); Calcium 9.8 mg/dL (8.7-10.4); Carbon Dioxide 29 mmol/L (20-31); Glucose 98 mg/dL (74-106); Potassium 4.2 mmol/L (3.5-5.1); Sodium 143 mmol/L (136-145)
[2024-12-25 11:36] LABS: Total Protein 7.6 g/dL (5.7-8.2)
[2024-12-25 11:37] LABS: Albumin 4.2 g/dL (3.2-4.8); Aspartate Aminotransferase 17 U/L (<34); Blood Urea Nitrogen 8 mg/dL (9-23); Chloride 107 mmol/L (98-107)
[2024-12-25 11:38] LABS: Bilirubin, Total 0.6 mg/dL (0.2-1.0)
[~2024-12-29] VITALS: Ht 172.7 cm; Wt 85.9 kg
[~2024-12-29 06:17] MED LIST changes: +APIX2.5T PO; -ATOR10TA52 PO; -CALCTAB28 PO; -FAMO20TA10 PO; +FINA1TAB12 OR; -IBUP-1453 PO; -IBUP200C3 PO; -NITR0.4S29 SL; -PANT40TA2 PO; +TICA90TA PO; -TOLT2CAP PO; -VERI5TAB PO
[2024-12-29] MEDS: SUCCINYLCHOLINE CHLORIDE 20 MG/ML 10ML VIAL IV ONE (06:43)
[2024-12-29] MEDS: ROCURONIUM 10MG/ML 10ML VIAL IV ONE (06:43)
[2024-12-29] MEDS ORDERED: KETAMINE 50mg/ML 1ml syringe ONE (06:59)
[2024-12-29] MEDS ORDERED: ONDANSETRON HCL 4 MG/2 ML VIAL ONE (07:00)
[2024-12-29] MEDS ORDERED: SODIUM CHLORIDE LOCK 10 ML ONE (07:00)
[2024-12-29] MEDS ORDERED: fentaNYL CITRATE 5 ML ONE (07:00)
[2024-12-29] MEDS ORDERED: LIDOCAINE 1% INJ PF 5ML AMP ONE (07:00)
[2024-12-29] MEDS ORDERED: LIDOCAINE 2% TOPICAL JELLY 5 ML URJT TOP ONE (07:00)
[2024-12-29] MEDS ORDERED: DexAMETHasone SOD PHOS 10MG/1ML VIAL INJ ONE (07:00)
[2024-12-29] MEDS ORDERED: MIDAZOLAM HCL 2MG/2ML 2ml VIAL (1mg/ml) ONE (07:00)
[2024-12-29] MEDS ORDERED: fentaNYL CITRATE 100 MCG/2 ML VL ONE ×2 (07:00→09:46)
[2024-12-29] MEDS ORDERED: HYDROmorphone HCL 2 MG/ML VL/or syr ONE (07:00)
[2024-12-29] MEDS: METOCLOPRAMIDE HCL 5MG/ml INJ 2ml VIAL IV ONE (07:15)
[2024-12-29] MEDS ORDERED: MORPHINE SULFATE 4 MG/ML SYR/VIAL IV PRN (07:15)
[2024-12-29] MEDS ORDERED: MORPHINE SULFATE INJ 2 MG/ml SYRG IV PRN ×3 (07:15→14:30)
[2024-12-29] MEDS ORDERED: HYDROmorphone HCL 2 MG/ML VL/or syr IV PRN ×2 (07:15)
[2024-12-29] MEDS: ceFAZolin 2 GM/D5W50ml 50 ML IV ONE (07:45)
[2024-12-29] MEDS: BUPIVACAINE HCL 0.25% P/F 10 ML VIAL ONE (08:08)
[2024-12-29] MEDS: LIDOCAINE 1% HCL (LOCAL ANESTH.) INJ 20ML MDV ONE (08:09)
[2024-12-29] MEDS: HEPARIN SODIUM (PORCINE) 5000 UNITS/ML 1ML VIAL ONE ×2 (08:10→09:29)
[2024-12-29] MEDS: HEPARIN 1,000 UNITS/ml 1ML VIAL ONE (09:31)
[2024-12-29 11:50] VITALS: PULSE 68; RESP 13; O2SAT 97
[2024-12-29] MEDS ORDERED: NITROGLYCERIN 0.4 MG SL TAB SL PRN (12:15)
--- NOTE | 2024-12-29 12:15 | POSTOP ---
Post-Operative Note Post-Operative Note Preop Diagnosis right leg sfa occlusion Postop Diagnosis: same Operation performed right common femoral artery endartectomy right Common femoral to below knee popliteal artery bypass irving franklin saphenous vein graft Specimen right common femoral artery plaque Anesthesia: General Anesthesiologist: get Blood Loss(fluid mgmt) 200 ml Tourniquet Time no Surgeon Melchor Wall MD Sleever none Implant none Complications & Mgmt none Date 12/29/24 Time 12:07 MELCHOR WALL Jr., MD Dec 29, 2024 12:15
--- NOTE | 2024-12-29 12:27 | DVHOP2 ---
Operative Report - 2 Report Details Date: 12/29/24 Preop Diagnosis: right leg sfa occlusion Postop Diagnosis: same Surgeon: Melchor Wall MD Dice Manager: none Anesthesiologist: karine Anesthesia: General Implant: none Consent: The patient was informed of the risks and benefits of the procedure. These include but are not limited to complications of anesthesia, postoperative infection, incomplete relief of symptoms, recurrence of symptoms, damage to blood vessels, nerves and tendons, deep venous thrombosis, pulmonary embolism and possible need for repeat surgery in the future. Complications: none Estimated Blood Loss: 200 ml Name of Procedure Performed right common femoral artery endartectomy right Common femoral to below knee popliteal artery bypass win insitu saphenous vein graft Procedure Details Procedure Details: The patient was brought back to the operating room placed the operating table in supine position after adequate induction of anesthesia antibiotics and time-out. The right leg was prepped and draped in normal surgical fashion. Standard longitudinal incision was made in the above the right common femoral artery. Dissection was taken down to the common femoral artery common femoral artery was dissected proximally there was significant amount of scar tissue from prior cardiac catheterizations then peripheral angiograms. The proximal control of the common femoral artery was obtained. The artery was extremely calcified. Distal control of the common femoral artery SFA and profunda were performed with vessel loops. Attention was then placed to identifying the saphenous vein the saphenous vein appeared to be adequate in size it was dissected free the common femoral vein was also dissected freely. At this point the attention was then placed through the below-knee incision were the below-knee popliteal incision was made a careful attention was to identify the saphenous vein. This was found to be adequate size for the bypass. The saphenous vein was skeletonized distally all branches were divided with 4-0 silk sutures. Attention was then placed to obtain access to the popliteal fossa. The popliteal fossa was entered the popliteal artery [id number] was identified posterior to the popliteal vein and popliteal vein was isolated and retracted gently the popliteal artery was then identified and controlled proximally and distally. At this point in time 3000 units of heparin was given to the patient. Attention was then placed back up to the proximal saphenous vein was dissected out and divided off of the common femoral vein. The common femoral vein was then oversewed with a side- biting clamp with the 5 0 [place] suture. The saphenous vein was then examined there was 1 valve noted in the proximal saphenous vein which was lysed with the valvulotome. The common femoral artery was then opened in a longitudinal fashion with 11 blade followed by Sharma scissors. There was significant plaque within the common femoral artery which was endarterectomized. The saphenous vein was then sewn to the common femoral artery in end-to-side fashion with 5 0 Prolene suture. At the completion of the anastomosis the vessel loops were removed and flow was restored to the profunda and then the saphenous vein proximally it dilated up very well no significant bleeding was noted Surgicel was applied to the anastomosis. At this point in time the distal saphenous vein was then ligated with 0 silk suture and using a [place] valvulotome the saphenous vein was then lysed to allow antegrade flow of the common femoral artery down through the saphenous vein. Pulsatile flow was restored through the saphenous vein the vein was then clamped. Popliteal artery was then prepared for the anastomosis a end-to-side anastomosis was performed with the 6 0 Prolene suture with a saphenous vein to the popliteal artery completion of the anast omosis the flow was restored there was excellent flow in the saphenous vein there was palpable pulse in the distal popliteal artery this was confirmed with Doppler signals. The posterior tibial and dorsalis pedis pulses were also identified with Doppler signals. The wounds were both irrigated out and then closed with a deep layers of 2-0 Vicryl sutures interruptedly followed by dermal layer of 2-0 Vicryl sutures in a running fashion followed by rupert. Patient wounds were dressed with gauze and Tegaderm. The patient awoke without any difficulties taken to the PACU in stable condition sponge and needle counts were correct. Family was made aware of all findings. Specimen: right common femoral artery plaque Condition Good Disposition stable MELCHOR WALL Jr., MD Dec 29, 2024 12:27
--- NOTE | 2024-12-29 14:24 | DVHHP2 ---
Review of Systems Allergies: Uncoded Allergies: NONE (Allergy, Unknown, 01/21/24) Medications Current Medications Medications Dose Ordered Sig/Westley Route Start Time Stop Time Status Last Admin Dose Admin Nitroglycerin 0.4 mg Q5MINP PRN SL 12/29/24 12:15 Morphine Sulfate 2 mg Q30M PRN IV 12/29/24 12:15 Exam Vital Signs Vital Signs Date Time Temp Pulse Resp B/P (MAP) Pulse Ox O2 Delivery O2 Flow Rate FiO2 12/29/24 11:50 Mask 6.0 97 12/29/24 11:50 97.6 68 13 140/61 (87) 97 97.6 Labs/Xrays Labs Test 12/25/24 10:50 Range/Units White Blood Count 4.2 L 4.4-10.8 10^3/uL Red Blood Count 4.23 L 4.5-5.90 10^6/uL Hemoglobin 13.4 L 13.5-17.5 g/dL Hematocrit 38.6 L 41.0-53.0 % Mean Corpuscular Volume 91.2 80.0-100.0 fL Mean Corpuscular Hemoglobin 31.6 28.0-32.0 pg Mean Corpuscular Hemoglobin Concent 34.7 32.0-36.0 g/dL Red Cell Distribution Width 13.8 11.8-14.3 % Platelet Count 155 140-450 10^3/uL Mean Platelet Volume 7.5 6.9-10.8 fL Neutrophils (%) (Auto) 69.0 37.0-80.0 % Lymphocytes (%) (Auto) 16.5 10.0-50.0 % Monocytes (%) (Auto) 12.4 H 0.0-12.0 % Eosinophils (%) (Auto) 1.3 0.0-7.0 % Basophils (%) (Auto) 0.8 0.0-2.0 % Neutrophils # (Auto) 2.9 1.6-8.6 10 ^3/uL Lymphocytes # (Auto) 0.7 0.4-5.4 10 ^3/uL Monocytes # (Auto) 0.5 0-1.3 10 ^3/uL Eosinophils # (Auto) 0.1 0-0.8 10 ^3/uL Basophils # (Auto) 0 0-0.2 10 ^3/uL Nucleated Red Blood Cells 0.0 % Prothrombin Time 10.7 9.3-11.8 sec Prothrombin Time INR 1.01 0.9-1.15 Activated Partial Thromboplast Time 27.7 24.5-34.5 SEC Urine Color Light-yellow Yellow Urine Clarity Clear Clear Urine pH 6.5 5.0-9.0 Urine Specific [place] 1.013 1.001-1.035 Urine Protein Negative Negative Urine Ketones Negative Negative Urine Blood Negative Negative /uL Urine Nitrite Negative Negative Urine Bilirubin Negative Negative Urine Urobilinogen Normal Negative mg/dL Urine Leukocyte Esterase Negative Negative /uL Urine RBC 1 0 - 3 /hpf Urine Microscopic WBC < 1 0-3 /HPF Urine Squamous Epithelial Cells None seen <5 /hpf Urine Bacteria None seen None Seen /hpf Urine Glucose Normal Normal mg/dL Sodium Level 143 136-145 mmol/L Potassium Level 4.2 3.5-5.1 mmol/L Chloride Level 107 98-107 mmol/L Carbon Dioxide Level 29 20-31 mmol/L Anion Gap 7 5-15 Blood Urea Nitrogen 8 L 9-23 mg/dL Creatinine 0.96 0.700-1.30 mg/dL Glomerular Filtration Rate Calc 85 >90 mL/min BUN/Creatinine Ratio 8.3 L 10.0-20.0 Serum Glucose 98 74-106 mg/dL Calcium Level 9.8 8.7-10.4 mg/dL Total Bilirubin 0.6 0.2-1.0 mg/dL Aspartate Amino Transferase (AST) 17 <34 U/L Alanine Aminotransferase (ALT) 21 7-40 U/L Alkaline Phosphatase 86 46-116 U/L Total Protein 7.6 5.7-8.2 g/dL Albumin 4.2 3.2-4.8 g/dL Assessment/Plan Assessment/Plan see dictated note Plan discussed with: Patient, Spouse My Orders Orders - GLENIS ANDREWS MD Procedure Category Date Status Time Admit ADMIT 12/29/24 Transmitted 12:14 Oxygen By Nasal RT 12/29/24 Transmitted Cannula 12:14 Nitroglycerin PHA 12/29/24 In Process Sublingual (Ntrostat 12:15 Morphine Sulfate PHA 12/29/24 In Process Injection 12:15 Stat Ekg For Chest LYNETTE 12/29/24 In Process Pain 12:14 Notify Md Of Changes LYNETTE 12/29/24 In Process From Base 12:14 Line Technician For LYNETTE 12/29/24 In Process 24 Hours 12:14 Emergency Dysrhythmia LYNETTE 12/29/24 In Process Protocol 12:14 Rhythm Strips Once [facility] 12/29/24 In Process Every Shift 12:14 * Cardiology Consult CONS 12/29/24 Verified 14:13 Cardiac DIET 12/29/24 Verified Diet-2gna,Lofat,Lochol Dinner Levothyroxine Tablet PHA 12/30/24 Verified (Synthroid Tablet) 06:00 Lamotrigine Tablet PHA 12/29/24 Verified (Lamictal Tablet) 22:00 Finasteride Tablet PHA 12/30/24 Verified (Proscar Tablet) 10:00 Clopidogrel Bisulfate PHA 12/30/24 Verified (Plavix) 10:00 Complete Blood Count LAB 12/30/24 Verified 06:00 Comprehensive LAB 12/30/24 Verified Metabolic Panel 06:00 Thyroid Stimulating LAB 12/30/24 Verified Hormone 05:00 Date of Service: Dec 29, 2024 Billing Provider: GLENIS ANDREWS MD Common Visit Codes: 91006-[id number] INP/OBS CARE (HIGH) Secondary Visit Codes: [id number] CARE PLAN 30 MINUTES GLENIS ANDREWS MD Dec 29, 2024 14:24
[2024-12-29] MEDS ORDERED: ONDANSETRON HCL 4 MG/2 ML VIAL IV PRN (14:30)
--- NOTE | 2024-12-29 14:43 | DVHHP ---
ADMIT DATE: 12/29/2024 HISTORY OF PRESENT ILLNESS: The patient is a 69-year-old gentleman who has been admitted after he underwent surgery on the right leg for right saphenous artery occlusion. He underwent endarterectomy with bypass. The patient at this time denies any significant pain. No chest pain. No shortness of breath. No nausea or vomiting. REVIEW OF SYSTEMS: Review of rest systems otherwise currently negative. PAST MEDICAL HISTORY: Significant for pacemaker, coronary artery disease, COPD, hypothyroidism, BPH, status post AICD placement. MEDICATIONS: Include Plavix, Eliquis, Celexa, finasteride, Lamictal, levothyroxine, Lyrica, trazodone. ALLERGIES: No known drug allergies. SOCIAL HISTORY: Quit smoking. Denies alcohol. Lives at home with his . FAMILY HISTORY: Negative. PHYSICAL EXAMINATION: GENERAL: The patient is awake and alert. VITAL SIGNS: Temperature of 97.6, pulse 68 per minute, blood pressure 140/61. SHEENT: Unremarkable. There is no JVD. No pedal edema. LUNGS: Equal bilaterally. No added sounds. CARDIOVASCULAR: S1 and S2 is regular. There is a left parasternal systolic murmur. ABDOMEN: Soft. There is no organomegaly. NEUROLOGICAL: Nonfocal. MUSCULOSKELETAL: There is a dressing at the site of the right femoral surgery. ASSESSMENT AND PLAN: * Hypertension. * Coronary artery disease for which the patient will continue on Plavix. * COPD. * Hypothyroidism for which he will continue on levothyroxine. * BPH. * Anxiety/depression. * Peripheral vascular disease. * Status post right superficial femoral artery endarterectomy with bypass grafting for which he will be followed up by Dr. Wall. * Advance care planning: The patient is a full code-Time spent was 19 minutes. MD NIGHAT Dawson/BOZENA TID: [id number] RECEIPT: [id number] MTD
[2024-12-29] MEDS: MORPHINE SULFATE 4 MG/ML SYR/VIAL IV PRN (16:04)
[2024-12-29 17:10] VITALS: BP 131/60; PULSE 67; RESP 20; TEMP 97.8; O2SAT 93
[2024-12-29 20:00] VITALS: PULSE 67
[2024-12-29 21:00] VITALS: BP 120/68; PULSE 65; RESP 16; TEMP 99; O2SAT 93
[2024-12-29] MEDS: PREGABALIN 25 MG CAP PO SCH (21:08)
[2024-12-29] MEDS: lamoTRIgine 25 MG TAB PO SCH (21:09)
[2024-12-29] MEDS: MELATONIN 5 MG TAB PO ONE (23:13)
[2024-12-30] VITALS (8 sets, daily range): BP systolic 127–149; BP diastolic 56–62; PULSE 62–71; RESP 16–19; TEMP 97.8–99.2; O2SAT 95–97
[2024-12-30] MEDS: LEVOTHYROXINE SODIUM 88 MCG TAB PO SCH (05:37)
[2024-12-30 06:02] LABS: Basophils # (auto) 0 10 ^3/uL (0-0.2); Basophils % (auto) 0.2 % (0.0-2.0); Eosinophils # (auto) 0 10 ^3/uL (0-0.8); Eosinophils % (auto) 0.1 % (0.0-7.0); Hematocrit 37.1 % (41.0-53.0); Hemoglobin 12.8 g/dL (13.5-17.5); Lymphocytes # (auto) 0.8 10 ^3/uL (0.4-5.4); Lymphocytes % (auto) 10.2 % (10.0-50.0); Mean Corpuscular Hemoglobin 31.5 pg (28.0-32.0); Mean Corpuscular Hgb Conc. 34.5 g/dL (32.0-36.0); Mean Corpuscular Volume 91.3 fL (80.0-100.0); Monocytes # (auto) 0.9 10 ^3/uL (0-1.3); Monocytes % (auto) 10.5 % (0.0-12.0); Neutrophils # (auto) 6.4 10 ^3/uL (1.6-8.6); Nucleated Red Blood Cells % 0.2 %; Platelet Count (auto) 164 10^3/uL (140-450); Red Blood Cells 4.06 10^6/uL (4.5-5.90); Red Cell Distribution Width 14.2 % (11.8-14.3); White Blood Cell 8.1 10^3/uL (4.4-10.8)
[2024-12-30 06:09] LABS: Alanine Aminotransferase 15 U/L (7-40); Albumin 3.6 g/dL (3.2-4.8); Alkaline Phosphatase 76 U/L (46-116); Anion Gap 7 (5-15); Aspartate Aminotransferase 14 U/L (<34); BUN/Creatinine Ratio 20.5 (10.0-20.0); Bilirubin, Total 0.4 mg/dL (0.2-1.0); Blood Urea Nitrogen 16 mg/dL (9-23); Carbon Dioxide 27 mmol/L (20-31); Glucose 94 mg/dL (74-106); Potassium 3.9 mmol/L (3.5-5.1); Sodium 142 mmol/L (136-145); Total Protein 6.6 g/dL (5.7-8.2)
[2024-12-30 06:26] LABS: Calcium 8.4 mg/dL (8.7-10.4); Chloride 108 mmol/L (98-107)
--- NOTE | 2024-12-30 07:09 | DVHPN2 ---
Progress Note Date Seen: Dec 30, 2024 Has the PT tested + for MRSA If YES, has PT been informed?: No Medical Necessity Reason Pt with a Central, PICC or Fol: No The following are medically ne: Whitaker Catheter Reason for whitaker catheter: Sunil. Abd Surgery Subjective Review of Systems APPROPRIATE SURGICAL PAIN Patient reports: Other Changes from previous H/P or p: No Changes Review of Systems: HEENT:Normal, CVS:Normal, RESPIRATORY:Normal, GI:Normal, :Normal, MSK:Normal, NEURO:Normal Objective vital signs Vital Sign Date Time Temp Pulse Resp B/P (MAP) Pulse Ox O2 Delivery O2 Flow Rate FiO2 12/30/24 05:00 97.8 67 18 127/59 (81) 95 97.8 12/29/24 20:00 Room Air* 0 21 Total Intake and Output 12/29/24 12/29/24 12/30/24 15:00 23:00 07:00 Intake Total 50 ml 150 ml 480 ml Output Total 850 ml 275 ml 400 ml Balance -800 ml -125 ml 80 ml medications Current Medications Medications Dose Ordered Sig/Westley Route Start Time Stop Time Status Last Admin Dose Admin Nitroglycerin 0.4 mg Q5MINP PRN SL 12/29/24 12:15 Morphine Sulfate 2 mg Q30M PRN IV 12/29/24 12:15 Levothyroxine Sodium 88 mcg QAM@0600 PO 12/30/24 06:00 12/30/24 05:37 88 MCG Lamotrigine 50 mg Q12HR PO 12/29/24 22:00 12/29/24 21:09 50 MG Finasteride 5 mg DAILY PO 12/30/24 10:00 Clopidogrel Bisulfate 75 mg DAILY PO 12/30/24 10:00 Acetaminophen 650 mg Q6HP PRN PO 12/29/24 14:30 Tramadol HCl 50 mg Q6HP PRN PO 12/29/24 14:30 Morphine Sulfate 1 mg Q4HP PRN IV 12/29/24 14:30 UNV Ondansetron HCl 4 mg Q6HPRN PRN IV 12/29/24 14:30 Pregabalin 25 mg BID PO 12/29/24 22:00 12/29/24 21:08 25 MG Morphine Sulfate 1 mg Q4HPRN PRN IV 12/29/24 15:30 12/29/24 23:13 1 MG Melatonin 5 mg HS PO 12/30/24 22:00 Examination: GENERAL:Normal, HEENT:Normal, NECK:Normal, LUNGS:Normal, CVS:Normal, ABDOMEN:Normal, MSK:Normal (Warm perfused right foot. Incisions are clean dry and intact), SKIN:Normal, NEURO:Normal, :Normal laboratory and microbiology Laboratory Tests 12/30/24 05:29 Test 12/30/24 05:29 Range/Units Serum Glucose 94 74-106 mg/dL Problem List/Assessment/Plan Problem List/Assessment/Plan Status post right femoral to below-knee popliteal in-situ saphenous vein bypass with right common femoral endarterectomy December 29 2024. Out of bed today Physical therapy JACOB Whitaker Discharge planning for the next several days. Pain control Plan discussed with: Patient MARLA TEJADA Jr., MD Dec 30, 2024 07:09
[2024-12-30] MEDS: FINASTERIDE 5 MG TAB PO SCH (08:40)
[2024-12-30] MEDS: CLOPIDOGREL BISULFATE 75 MG TAB PO SCH (08:41)
--- NOTE | 2024-12-30 11:29 | DVHPN2 ---
Progress Note Date Seen: Dec 30, 2024 Has the PT tested + for MRSA If YES, has PT been informed?: No Medical Necessity Reason Pt with a Central, PICC or Fol: No Subjective Patient reports: No new complaints Review of Systems: HEENT:Normal, CVS:Normal, RESPIRATORY:Normal, GI:Normal, :Normal, MSK:Normal, NEURO:Normal Objective vital signs Vital Sign Date Time Temp Pulse Resp B/P (MAP) Pulse Ox O2 Delivery O2 Flow Rate FiO2 12/30/24 09:00 99.2 69 17 129/62 (84) 95 99.2 12/30/24 08:00 Room Air* 0 21 Total Intake and Output 12/29/24 12/29/24 12/30/24 15:00 23:00 07:00 Intake Total 50 ml 150 ml 480 ml Output Total 850 ml 275 ml 400 ml Balance -800 ml -125 ml 80 ml medications Current Medications Medications Dose Ordered Sig/Westley Route Start Time Stop Time Status Last Admin Dose Admin Nitroglycerin 0.4 mg Q5MINP PRN SL 12/29/24 12:15 Morphine Sulfate 2 mg Q30M PRN IV 12/29/24 12:15 Levothyroxine Sodium 88 mcg QAM@0600 PO 12/30/24 06:00 12/30/24 05:37 88 MCG Lamotrigine 50 mg Q12HR PO 12/29/24 22:00 12/30/24 08:40 50 MG Finasteride 5 mg DAILY PO 12/30/24 10:00 12/30/24 08:40 5 MG Clopidogrel Bisulfate 75 mg DAILY PO 12/30/24 10:00 12/30/24 08:41 75 MG Acetaminophen 650 mg Q6HP PRN PO 12/29/24 14:30 Tramadol HCl 50 mg Q6HP PRN PO 12/29/24 14:30 Morphine Sulfate 1 mg Q4HP PRN IV 12/29/24 14:30 UNV Ondansetron HCl 4 mg Q6HPRN PRN IV 12/29/24 14:30 Pregabalin 25 mg BID PO 12/29/24 22:00 12/30/24 08:41 25 MG Morphine Sulfate 1 mg Q4HPRN PRN IV 12/29/24 15:30 12/29/24 23:13 1 MG Melatonin 5 mg HS PO 12/30/24 22:00 Examination: GENERAL:Normal, HEENT:Normal, NECK:Normal, LUNGS:Normal, CVS:Normal, ABDOMEN:Normal, MSK:Normal, MSK:Abnormal (right leg dressing), SKIN:Normal, NEURO:Normal, :Normal laboratory and microbiology Laboratory Tests 12/30/24 05:29 Test 12/30/24 05:29 Range/Units Serum Glucose 94 74-106 mg/dL Problem List/Assessment/Plan Problem List/Assessment/Plan * Hypertension: monitor * Coronary artery disease for which the patient will continue on Plavix. * COPD. * Hypothyroidism for which he will continue on levothyroxine. * BPH. * Anxiety/depression. * Peripheral vascular disease. * Status post right superficial femoral artery endarterectomy with bypass grafting for which he will be followed up by Dr. Wall. * Advance care planning: The patient is a full code- 18 mins Plan discussed with: Patient My Orders My Orders Orders - GLENIS NADREWS MD Procedure Category Date Status Time Admit ADMIT 12/29/24 Transmitted 12:14 Oxygen By Nasal RT 12/29/24 Transmitted Cannula 12:14 Nitroglycerin PHA 12/29/24 In Process Sublingual (Ntrostat 12:15 Morphine Sulfate PHA 12/29/24 In Process Injection 12:15 Stat Ekg For Chest LYNETTE 12/29/24 In Process Pain 12:14 Notify Md Of Changes [facility] 12/29/24 In Process From Base 12:14 Ticket Collector For [facility] 12/29/24 In Process 24 Hours 12:14 Emergency Dysrhythmia [facility] 12/29/24 In Process Protocol 12:14 Rhythm Strips Once [facility] 12/29/24 In Process Every Shift 12:14 * Cardiology Consult CONS 12/29/24 Transmitted 14:13 Cardiac DIET 12/29/24 Transmitted Diet-2gna,Lofat,Lochol Dinner Levothyroxine Tablet PHA 12/30/24 In Process (Synthroid Tablet) 06:00 Lamotrigine Tablet PHA 12/29/24 In Process (Lamictal Tablet) 22:00 Finasteride Tablet PHA 12/30/24 In Process (Proscar Tablet) 10:00 Clopidogrel Bisulfate PHA 12/30/24 In Process (Plavix) 10:00 Acetaminophen Tablet PHA 12/29/24 In Process (Tylenol Tablet) 14:30 Tramadol Hcl (Ultram) PHA 12/29/24 In Process 14:30 Ondansetron Hcl PHA 12/29/24 In Process (Zofran) 14:30 Pregabalin Capsule PHA 12/29/24 In Process (Lyrica Capsule) 22:00 Morphine Sulfate PHA 12/29/24 In Process Injection 15:30 Date of Service: Dec 30, 2024 Billing Provider: GLENIS ANDREWS MD Common Visit Codes: [id number] INP/OBS CARE(HIGH) Secondary Visit Codes: [id number] CARE PLAN 30 MINUTES GLENIS ANDREWS MD Dec 30, 2024 11:29
[2024-12-30] MEDS: traMADol HCL 50 MG TAB PO PRN (12:16)
--- NOTE | 2024-12-30 14:09 | DVHPN2 ---
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 PTCA STENT S/P AICD HX OF [place] PAD MULTIPLE PERCUTANEOUS INTERVWNTIONS AT [facility] AND [facility] ALL PERCUTANEOUS INTERVENTIONS FAILED TO KEEP LE FLOW SUSTAINED NOW S/P RIGHT FEMORAL ARTERECTOMY WITH RIGHT FEMPOP BYPASS COPD HYPOTHYROIDISM vital signs Vital Sign Date Time Temp Pulse Resp B/P (MAP) Pulse Ox O2 Delivery O2 Flow Rate FiO2 12/30/24 09:00 99.2 69 17 129/62 (84) 95 99.2 12/30/24 08:00 Room Air* 0 21 Total Intake and Output 12/29/24 12/29/24 12/30/24 14:59 22:59 06:59 Intake Total 50 ml 150 ml 480 ml Output Total 850 ml 275 ml 400 ml Balance -800 ml -125 ml 80 ml medications Current Medications Medications Dose Ordered Sig/Westley Route Start Time Stop Time Status Last Admin Dose Admin Nitroglycerin 0.4 mg Q5MINP PRN SL 12/29/24 12:15 Morphine Sulfate 2 mg Q30M PRN IV 12/29/24 12:15 Levothyroxine Sodium 88 mcg QAM@0600 PO 12/30/24 06:00 12/30/24 05:37 88 MCG Lamotrigine 50 mg Q12HR PO 12/29/24 22:00 12/30/24 08:40 50 MG Finasteride 5 mg DAILY PO 12/30/24 10:00 12/30/24 08:40 5 MG Clopidogrel Bisulfate 75 mg DAILY PO 12/30/24 10:00 12/30/24 08:41 75 MG Acetaminophen 650 mg Q6HP PRN PO 12/29/24 14:30 Tramadol HCl 50 mg Q6HP PRN PO 12/29/24 14:30 12/30/24 12:16 50 MG Morphine Sulfate 1 mg Q4HP PRN IV 12/29/24 14:30 UNV Ondansetron HCl 4 mg Q6HPRN PRN IV 12/29/24 14:30 Pregabalin 25 mg BID PO 12/29/24 22:00 12/30/24 08:41 25 MG Morphine Sulfate 1 mg Q4HPRN PRN IV 12/29/24 15:30 12/29/24 23:13 1 MG Melatonin 5 mg HS PO 12/30/24 22:00 laboratory and microbiology Laboratory Tests 12/30/24 05:29 Test 12/30/24 05:29 Range/Units Serum Glucose 94 74-106 mg/dL Problem List ORGANIC HD CAD ISCHEMIC CM PTCA STENT S/P AICD HX OF [place] PAD MULTIPLE PERCUTANEOUS INTERVWNTIONS AT [facility] AND [facility] ALL PERCUTANEOUS INTERVENTIONS FAILED TO KEEP LE FLOW SUSTAINED NOW S/P RIGHT FEMORAL ARTERECTOMY WITH RIGHT FEMPOP BYPASS COPD HYPOTHYROIDISM Assessment/Plan RESUME ANTI PLATELET THERAPY HYPERCOAGULABLE STATE RESUME HOME MEDS MONITOR FOR BLEEDING CHECK CBC Plan discussed with: Patient, Spouse Critical Care Time(min): 35 NEGRITA GRANDE MD Dec 30, 2024 14:09
--- NOTE | 2024-12-30 14:10 | DVHPN2 ---
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 PTCA STENT S/P AICD HX OF [place] PAD MULTIPLE PERCUTANEOUS INTERVWNTIONS AT [facility] AND [facility] BU ALL PERCUTANEOUS INTERVENTIONS FAILED TO KEEP LE FLOW SUSTAINED NOW S/P RIGHT FEMORAL ARTERECTOMY WITH RIGHT FEMPOP BYPASS COPD HYPOTHYROIDISM vital signs Vital Sign Date Time Temp Pulse Resp B/P (MAP) Pulse Ox O2 Delivery O2 Flow Rate FiO2 12/30/24 09:00 99.2 69 17 129/62 (84) 95 99.2 12/30/24 08:00 Room Air* 0 21 Total Intake and Output 12/29/24 12/29/24 12/30/24 14:59 22:59 06:59 Intake Total 50 ml 150 ml 480 ml Output Total 850 ml 275 ml 400 ml Balance -800 ml -125 ml 80 ml medications Current Medications Medications Dose Ordered Sig/Westley Route Start Time Stop Time Status Last Admin Dose Admin Nitroglycerin 0.4 mg Q5MINP PRN SL 12/29/24 12:15 Morphine Sulfate 2 mg Q30M PRN IV 12/29/24 12:15 Levothyroxine Sodium 88 mcg QAM@0600 PO 12/30/24 06:00 12/30/24 05:37 88 MCG Lamotrigine 50 mg Q12HR PO 12/29/24 22:00 12/30/24 08:40 50 MG Finasteride 5 mg DAILY PO 12/30/24 10:00 12/30/24 08:40 5 MG Clopidogrel Bisulfate 75 mg DAILY PO 12/30/24 10:00 12/30/24 08:41 75 MG Acetaminophen 650 mg Q6HP PRN PO 12/29/24 14:30 Tramadol HCl 50 mg Q6HP PRN PO 12/29/24 14:30 12/30/24 12:16 50 MG Morphine Sulfate 1 mg Q4HP PRN IV 12/29/24 14:30 UNV Ondansetron HCl 4 mg Q6HPRN PRN IV 12/29/24 14:30 Pregabalin 25 mg BID PO 12/29/24 22:00 12/30/24 08:41 25 MG Morphine Sulfate 1 mg Q4HPRN PRN IV 12/29/24 15:30 12/29/24 23:13 1 MG Melatonin 5 mg HS PO 12/30/24 22:00 laboratory and microbiology Laboratory Tests 12/30/24 05:29 Test 12/30/24 05:29 Range/Units Serum Glucose 94 74-106 mg/dL Problem List ORGANIC HD CAD ISCHEMIC CM PTCA STENT S/P AICD HX OF [place] PAD MULTIPLE PERCUTANEOUS INTERVWNTIONS AT [facility] AND [facility] ALL PERCUTANEOUS INTERVENTIONS FAILED TO KEEP LE FLOW SUSTAINED NOW S/P RIGHT FEMORAL ARTERECTOMY WITH RIGHT FEMPOP BYPASS COPD HYPOTHYROIDISM Assessment/Plan RESUME ANTI PLATELET THERAPY HYPERCOAGULABLE STATE RESUME HOME MEDS MONITOR FOR BLEEDING CHECK CBC H/H STABLE HEMODYNAMICALLY STABLE Plan discussed with: Patient, Spouse Critical Care Time(min): 35 NEGRITA GRANDE MD Dec 30, 2024 14:10
[2024-12-30] MEDS: MELATONIN 5 MG TAB PO SCH (21:19)
[2024-12-31] VITALS (8 sets, daily range): BP systolic 127–158; BP diastolic 55–82; PULSE 64–71; RESP 16–18; TEMP 98–99.2; O2SAT 96–99
--- NOTE | 2024-12-31 07:05 | DVHPN2 ---
Progress Note Date Seen: Dec 31, 2024 Has the PT tested + for MRSA If YES, has PT been informed?: No Medical Necessity Reason Pt with a Central, PICC or Fol: No Subjective Patient reports: Feels better Changes from previous H/P or p: No Changes Objective vital signs Vital Sign Date Time Temp Pulse Resp B/P (MAP) Pulse Ox O2 Delivery O2 Flow Rate FiO2 12/31/24 05:00 98.0 67 18 130/60 (83) 96 98.0 12/30/24 20:00 Room Air* 0 21 Total Intake and Output 12/30/24 12/30/24 12/31/24 15:00 23:00 07:00 Intake Total 700 ml 800 ml Output Total 400 ml 600 ml Balance -400 ml 100 ml 800 ml medications Current Medications Medications Dose Ordered Sig/Westley Route Start Time Stop Time Status Last Admin Dose Admin Nitroglycerin 0.4 mg Q5MINP PRN SL 12/29/24 12:15 Morphine Sulfate 2 mg Q30M PRN IV 12/29/24 12:15 Levothyroxine Sodium 88 mcg QAM@0600 PO 12/30/24 06:00 12/31/24 05:48 88 MCG Lamotrigine 50 mg Q12HR PO 12/29/24 22:00 12/30/24 21:19 50 MG Finasteride 5 mg DAILY PO 12/30/24 10:00 12/30/24 08:40 5 MG Clopidogrel Bisulfate 75 mg DAILY PO 12/30/24 10:00 12/30/24 08:41 75 MG Acetaminophen 650 mg Q6HP PRN PO 12/29/24 14:30 Tramadol HCl 50 mg Q6HP PRN PO 12/29/24 14:30 12/30/24 12:16 50 MG Morphine Sulfate 1 mg Q4HP PRN IV 12/29/24 14:30 UNV Ondansetron HCl 4 mg Q6HPRN PRN IV 12/29/24 14:30 Pregabalin 25 mg BID PO 12/29/24 22:00 12/30/24 21:19 25 MG Morphine Sulfate 1 mg Q4HPRN PRN IV 12/29/24 15:30 12/30/24 21:16 1 MG Melatonin 5 mg HS PO 12/30/24 22:00 12/30/24 21:19 5 MG Examination: GENERAL:Normal, HEENT:Normal, NECK:Normal, LUNGS:Normal, CVS:Normal, ABDOMEN:Normal, MSK:Normal (post sugrical changes. palpable graft pulse. foot war well perfused), SKIN:Normal, NEURO:Normal, :Normal laboratory and microbiology Laboratory Tests 12/30/24 05:29 Test 12/30/24 05:29 Range/Units Serum Glucose 94 74-106 mg/dL Problem List/Assessment/Plan Problem List/Assessment/Plan Status post right femoral to below-knee popliteal in-situ saphenous vein bypass with right common femoral endarterectomy December 29 2024. Out of bed today Physical therapy Discharge planning for tomorrow Pain control Plan discussed with: Patient My Orders My Orders Orders - MARLA TEJADA Jr., MD Procedure Category Date Status Time Discontinue Robbins LYNETTE 12/30/24 In Process Catheter 07:09 Refer To Physical LYNETTE 12/30/24 In Process Therapy 07:09 Pt Request For Service PT 12/30/24 Logged 11:01 MARLA TEJADA Jr., MD Dec 31, 2024 07:05
--- NOTE | 2024-12-31 09:04 | DVHPN2 ---
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 PTCA STENT S/P AICD HX OF [place] PAD MULTIPLE PERCUTANEOUS INTERVWNTIONS AT [facility] AND [facility] BU ALL PERCUTANEOUS INTERVENTIONS FAILED TO KEEP LE FLOW SUSTAINED NOW S/P RIGHT FEMORAL ARTERECTOMY WITH RIGHT FEMPOP BYPASS COPD HYPOTHYROIDISM vital signs Vital Sign Date Time Temp Pulse Resp B/P (MAP) Pulse Ox O2 Delivery O2 Flow Rate FiO2 12/31/24 05:00 98.0 67 18 130/60 (83) 96 98.0 12/30/24 20:00 Room Air* 0 21 Total Intake and Output 12/30/24 12/30/24 12/31/24 14:59 22:59 06:59 Intake Total 700 ml 800 ml Output Total 400 ml 600 ml Balance -400 ml 100 ml 800 ml medications Current Medications Medications Dose Ordered Sig/Westley Route Start Time Stop Time Status Last Admin Dose Admin Nitroglycerin 0.4 mg Q5MINP PRN SL 12/29/24 12:15 Morphine Sulfate 2 mg Q30M PRN IV 12/29/24 12:15 Levothyroxine Sodium 88 mcg QAM@0600 PO 12/30/24 06:00 12/31/24 05:48 88 MCG Lamotrigine 50 mg Q12HR PO 12/29/24 22:00 12/30/24 21:19 50 MG Finasteride 5 mg DAILY PO 12/30/24 10:00 12/30/24 08:40 5 MG Clopidogrel Bisulfate 75 mg DAILY PO 12/30/24 10:00 12/30/24 08:41 75 MG Acetaminophen 650 mg Q6HP PRN PO 12/29/24 14:30 Tramadol HCl 50 mg Q6HP PRN PO 12/29/24 14:30 12/30/24 12:16 50 MG Morphine Sulfate 1 mg Q4HP PRN IV 12/29/24 14:30 UNV Ondansetron HCl 4 mg Q6HPRN PRN IV 12/29/24 14:30 Pregabalin 25 mg BID PO 12/29/24 22:00 12/30/24 21:19 25 MG Morphine Sulfate 1 mg Q4HPRN PRN IV 12/29/24 15:30 12/30/24 21:16 1 MG Melatonin 5 mg HS PO 12/30/24 22:00 12/30/24 21:19 5 MG laboratory and microbiology Laboratory Tests 12/30/24 05:29 Test 12/30/24 05:29 Range/Units Serum Glucose 94 74-106 mg/dL Problem List ORGANIC HD CAD ISCHEMIC CM PTCA STENT S/P AICD HX OF [place] PAD MULTIPLE PERCUTANEOUS INTERVWNTIONS AT [facility] AND [facility] ALL PERCUTANEOUS INTERVENTIONS FAILED TO KEEP LE FLOW SUSTAINED NOW S/P RIGHT FEMORAL ARTERECTOMY WITH RIGHT FEMPOP BYPASS COPD HYPOTHYROIDISM Assessment/Plan RESUME ANTI PLATELET THERAPY HYPERCOAGULABLE STATE RESUME HOME MEDS MONITOR FOR BLEEDING CHECK CBC H/H STABLE HEMODYNAMICALLY STABLE MAY DC HOME FOLLOW UP IN 1 WEEK Plan discussed with: Patient NEGRITA GRANDE MD Dec 31, 2024 09:04
[2024-12-31] MEDS: ACETAMINOPHEN 325 MG TAB PO PRN (10:17)
--- NOTE | 2024-12-31 13:16 | DVHPN2 ---
Progress Note Date Seen: Dec 31, 2024 Has the PT tested + for MRSA If YES, has PT been informed?: No Medical Necessity Reason Pt with a Central, PICC or Fol: No Subjective Patient reports: No new complaints Review of Systems: HEENT:Normal, CVS:Normal, RESPIRATORY:Normal, GI:Normal, :Normal, MSK:Normal, NEURO:Normal Objective vital signs Vital Sign Date Time Temp Pulse Resp B/P (MAP) Pulse Ox O2 Delivery O2 Flow Rate FiO2 12/31/24 09:00 98.3 64 18 158/72 (100) 97 98.3 12/30/24 20:00 Room Air* 0 21 Total Intake and Output 12/30/24 12/30/24 12/31/24 15:00 23:00 07:00 Intake Total 700 ml 800 ml Output Total 400 ml 600 ml Balance -400 ml 100 ml 800 ml medications Current Medications Medications Dose Ordered Sig/Westley Route Start Time Stop Time Status Last Admin Dose Admin Nitroglycerin 0.4 mg Q5MINP PRN SL 12/29/24 12:15 Morphine Sulfate 2 mg Q30M PRN IV 12/29/24 12:15 Levothyroxine Sodium 88 mcg QAM@0600 PO 12/30/24 06:00 12/31/24 05:48 88 MCG Lamotrigine 50 mg Q12HR PO 12/29/24 22:00 12/31/24 10:18 50 MG Finasteride 5 mg DAILY PO 12/30/24 10:00 12/31/24 10:17 5 MG Clopidogrel Bisulfate 75 mg DAILY PO 12/30/24 10:00 12/31/24 10:18 75 MG Acetaminophen 650 mg Q6HP PRN PO 12/29/24 14:30 12/31/24 10:17 650 MG Tramadol HCl 50 mg Q6HP PRN PO 12/29/24 14:30 12/30/24 12:16 50 MG Morphine Sulfate 1 mg Q4HP PRN IV 12/29/24 14:30 UNV Ondansetron HCl 4 mg Q6HPRN PRN IV 12/29/24 14:30 Pregabalin 25 mg BID PO 12/29/24 22:00 12/31/24 10:17 25 MG Morphine Sulfate 1 mg Q4HPRN PRN IV 12/29/24 15:30 12/30/24 21:16 1 MG Melatonin 5 mg HS PO 12/30/24 22:00 12/30/24 21:19 5 MG Examination: GENERAL:Normal, HEENT:Normal, NECK:Normal, LUNGS:Normal, CVS:Normal, ABDOMEN:Normal, MSK:Normal, SKIN:Normal, NEURO:Normal, :Normal laboratory and microbiology Laboratory Tests 12/30/24 05:29 Test 12/30/24 05:29 Range/Units Serum Glucose 94 74-106 mg/dL Problem List/Assessment/Plan Problem List/Assessment/Plan * Hypertension: monitor * Coronary artery disease for which the patient will continue on Plavix * s/p aicd * COPD. * Hypothyroidism for which he will continue on levothyroxine. * BPH. * Anxiety/depression. * Peripheral vascular disease. * Status post right superficial femoral artery endarterectomy with bypass grafting for which he will be followed up by Dr. Wall. * Advance care planning: The patient is a full code- 18 mins Plan discussed with: Patient My Orders My Orders Orders - GLENIS ANDREWS MD Procedure Category Date Status Time Apixaban (Eliquis) PHA 12/31/24 Verified 22:00 * Injection Molding Supervisor CONS 12/31/24 Verified Consult Date of Service: Dec 31, 2024 Billing Provider: GLENIS ANDREWS MD Common Visit Codes: [id number] INP/OBS CARE(HIGH) GLENIS ANDREWS MD Dec 31, 2024 13:16
[2024-12-31] MEDS: APIXABAN 2.5 MG TAB PO SCH (15:08)
[2025-01-01 01:00] VITALS: BP 131/62; PULSE 69; RESP 16; TEMP 98.7; O2SAT 95
[2025-01-01 05:00] VITALS: BP 146/72; PULSE 71; RESP 16; TEMP 98.3; O2SAT 97
[2025-01-01 08:00] VITALS: PULSE 70
[2025-01-01 08:56] VITALS: BP 138/70; PULSE 69; RESP 18; TEMP 98.8; O2SAT 97
--- NOTE | 2025-01-01 10:41 | DVHDS2 ---
Discharge Summary Date of Admission Dec 29, 2024 at 12:14 Date of Discharge: Jan 01, 2025 Labs/Diagnostic Data: Laboratory Results Test 12/30/24 05:29 12/25/24 10:50 White Blood Count 8.1 10^3/uL (4.4-10.8) Red Blood Count 4.06 10^6/uL (4.5-5.90) Hemoglobin 12.8 g/dL (13.5-17.5) Hematocrit 37.1 % (41.0-53.0) Mean Corpuscular Volume 91.3 fL (80.0-100.0) Mean Corpuscular Hemoglobin 31.5 pg (28.0-32.0) Mean Corpuscular Hemoglobin Concent 34.5 g/dL (32.0-36.0) Red Cell Distribution Width 14.2 % (11.8-14.3) Platelet Count 164 10^3/uL (140-450) Mean Platelet Volume 7.9 fL (6.9-10.8) Neutrophils (%) (Auto) 79.0 % (37.0-80.0) Lymphocytes (%) (Auto) 10.2 % (10.0-50.0) Monocytes (%) (Auto) 10.5 % (0.0-12.0) Eosinophils (%) (Auto) 0.1 % (0.0-7.0) Basophils (%) (Auto) 0.2 % (0.0-2.0) Neutrophils # (Auto) 6.4 10 ^3/uL (1.6-8.6) Lymphocytes # (Auto) 0.8 10 ^3/uL (0.4-5.4) Monocytes # (Auto) 0.9 10 ^3/uL (0-1.3) Eosinophils # (Auto) 0 10 ^3/uL (0-0.8) Basophils # (Auto) 0 10 ^3/uL (0-0.2) Nucleated Red Blood Cells 0.2 % Sodium Level 142 mmol/L (136-145) Potassium Level 3.9 mmol/L (3.5-5.1) Chloride Level 108 mmol/L (98-107) Carbon Dioxide Level 27 mmol/L (20-31) Anion Gap 7 (5-15) Blood Urea Nitrogen 16 mg/dL (9-23) Creatinine 0.78 mg/dL (0.700-1.30) Glomerular Filtration Rate Calc 95 mL/min (>90) BUN/Creatinine Ratio 20.5 (10.0-20.0) Serum Glucose 94 mg/dL (74-106) Calcium Level 8.4 mg/dL (8.7-10.4) Total Bilirubin 0.4 mg/dL (0.2-1.0) Aspartate Amino Transferase (AST) 14 U/L (<34) Alanine Aminotransferase (ALT) 15 U/L (7-40) Alkaline Phosphatase 76 U/L (46-116) Total Protein 6.6 g/dL (5.7-8.2) Albumin 3.6 g/dL (3.2-4.8) Thyroid Stimulating Hormone (TSH) 0.16 uIU/mL (0.55-4.78) Prothrombin Time 10.7 sec (9.3-11.8) Prothrombin Time INR 1.01 (0.9-1.15) Activated Partial Thromboplast Time 27.7 SEC (24.5-34.5) Urine Color Light-yellow (Yellow) Urine Clarity Clear (Clear) Urine pH 6.5 (5.0-9.0) Urine Specific Dickinson 1.013 (1.001-1.035) Urine Protein Negative (Negative) Urine Ketones Negative (Negative) Urine Blood Negative /uL (Negative) Urine Nitrite Negative (Negative) Urine Bilirubin Negative (Negative) Urine Urobilinogen Normal mg/dL (Negative) Urine Leukocyte Esterase Negative /uL (Negative) Urine RBC 1 /hpf (0 - 3) Urine Microscopic WBC < 1 /HPF (0-3) Urine Squamous Epithelial Cells None seen /hpf (<5) Urine Bacteria None seen /hpf (None Seen) Urine Glucose Normal mg/dL (Normal) Other Laboratory Tests 12/30/24 05:29 Brief Hx & Hospital Course: see dictated note Condition at Discharge: Good Final Diagnosis/Problems List pvd Discharge Disposition: Home Discharge Instruct/Medications Diet: Cardiac 2g Na,low cholest Activity: No Restrictions, As Tolerated Follow Up/Referral: schedule appt with dr Wall Medications: resume home meds Discharge Statement: "Patient was advised to return to the ER or call 911 if any headaches, dizziness, shortness of breath, chest pain, abdominal pain, bleeding, fevers, or worsening of medical condition. Patient was counseled about treatment plan, medications, possible side effects, patientverbalized understanding. All questions were answered to the best of my ability. This discharge took greater then 30 minutes in planning, reviewing documentation, counseling the patient, and discussing with other team members." ASSESSMENT ASSESSMENT Assessment pvd Date of Service: Jan 01, 2025 Billing Provider: GLENIS ANDREWS MD Common Visit Codes: [id number] DISCH DAY >30min GLENIS ANDREWS MD Jan 01, 2025 10:41
--- NOTE | 2025-01-01 10:53 | DVHDS ---
DATE OF DISCHARGE: 01/01/2025 HISTORY OF PRESENT ILLNESS: The patient is a 69-year-old gentleman who was admitted after he underwent surgery on the right leg for right saphenous artery occlusion and underwent endarterectomy and bypass. He has a previous history of coronary artery disease, AICD, COPD, hypothyroidism, and BPH. HOSPITAL COURSE: The patient did well post surgery. He was seen by Dr. Webb and Dr. Wall. The patient has been ambulating with no significant pain. He will now be discharged home to resume his home medications and follow up with Dr. Wall and Dr. Webb. FINAL DIAGNOSES: * Hypertension. * Coronary artery disease. * History of AICD. * COPD. * Hypothyroidism. * BPH. * Peripheral vascular disease. * Anxiety/depression. * Status post right superficial femoral artery endarterectomy with bypass grafting. Time spent in discharge planning and review of plan with the patient and nursing was 36 minutes. MD NIGHAT Dawson/UZMA TID: [id number] RECEIPT: [id number]
--- NOTE | 2025-01-01 11:17 | DVHPN2 ---
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 PTCA STENT S/P AICD HX OF [place] PAD MULTIPLE PERCUTANEOUS INTERVWNTIONS AT [facility] ALL PERCUTANEOUS INTERVENTIONS FAILED TO KEEP LE FLOW SUSTAINED NOW S/P RIGHT FEMORAL ARTERECTOMY WITH RIGHT FEMPOP BYPASS COPD HYPOTHYROIDISM vital signs Vital Sign Date Time Temp Pulse Resp B/P (MAP) Pulse Ox O2 Delivery O2 Flow Rate FiO2 01/01/25 08:56 98.8 69 18 138/70 (92) 97 98.8 12/31/24 20:00 Room Air* 0 21 Total Intake and Output 12/31/24 12/31/24 01/01/25 15:00 23:00 07:00 Intake Total 588 ml 600 ml Output Total 3 ml 401 ml Balance 585 ml 199 ml medications Current Medications Medications Dose Ordered Sig/Westley Route Start Time Stop Time Status Last Admin Dose Admin Nitroglycerin 0.4 mg Q5MINP PRN SL 12/29/24 12:15 Morphine Sulfate 2 mg Q30M PRN IV 12/29/24 12:15 Levothyroxine Sodium 88 mcg QAM@0600 PO 12/30/24 06:00 01/01/25 05:30 88 MCG Lamotrigine 50 mg Q12HR PO 12/29/24 22:00 01/01/25 10:42 50 MG Finasteride 5 mg DAILY PO 12/30/24 10:00 01/01/25 10:40 5 MG Clopidogrel Bisulfate 75 mg DAILY PO 12/30/24 10:00 01/01/25 10:42 75 MG Acetaminophen 650 mg Q6HP PRN PO 12/29/24 14:30 01/01/25 04:05 650 MG Tramadol HCl 50 mg Q6HP PRN PO 12/29/24 14:30 12/30/24 12:16 50 MG Morphine Sulfate 1 mg Q4HP PRN IV 12/29/24 14:30 UNV Ondansetron HCl 4 mg Q6HPRN PRN IV 12/29/24 14:30 Pregabalin 25 mg BID PO 12/29/24 22:00 01/01/25 10:40 25 MG Morphine Sulfate 1 mg Q4HPRN PRN IV 12/29/24 15:30 12/30/24 21:16 1 MG Melatonin 5 mg HS PO 12/30/24 22:00 12/31/24 21:33 5 MG Apixaban 2.5 mg BID PO 12/31/24 13:29 01/01/25 10:42 2.5 MG laboratory and microbiology Laboratory Tests 12/30/24 05:29 Test 12/30/24 05:29 Range/Units Serum Glucose 94 74-106 mg/dL Problem List ORGANIC HD CAD ISCHEMIC CM PTCA STENT S/P AICD HX OF [place] P[place] MULTIPLE PERCUTANEOUS INTERVWNTIONS AT [facility] AND [facility] ALL PERCUTANEOUS INTERVENTIONS FAILED TO KEEP LE FLOW SUSTAINED NOW S/P RIGHT FEMORAL ARTERECTOMY WITH RIGHT FEMPOP BYPASS COPD HYPOTHYROIDISM Assessment/Plan RESUME ANTI PLATELET THERAPY HYPERCOAGULABLE STATE RESUME HOME MEDS MONITOR FOR BLEEDING CHECK CBC H/H STABLE HEMODYNAMICALLY STABLE MAY DC HOME FOLLOW UP IN 1 WEEK Plan discussed with: Patient, Spouse NEGRITA GRANDE MD Jan 01, 2025 11:16
[2025-01-01 13:00] VITALS: BP 141/77; PULSE 69; RESP 18; TEMP 99.2; O2SAT 99
== END 2025-01-01 15:00 | disposition home or self-care (01) | DRG 253 ==
LOC: SUR 06:17 → OVERFLOW 12:14 → TELE-EAST 13:43
PROVIDERS: ADMIT Internal Medicine; ATTEND Internal Medicine
PROC: 041K09L Bypass Right Femoral Artery to Popliteal Artery with Autologous Venous Tissue, Open Approach (ICD-10-PCS; 2024-12-29)
PROC: 04CK0ZZ Extirpation of Matter from Right Femoral Artery, Open Approach (ICD-10-PCS; principal; 2024-12-29 07:29)
DX: I73.9 Peripheral vascular disease, unspecified (principal); D68.59 Other primary thrombophilia; I10 Essential (primary) hypertension; I25.10 Atherosclerotic heart disease of native coronary artery without angina pectoris; J44.9 Chronic obstructive pulmonary disease, unspecified; E03.9 Hypothyroidism, unspecified; N40.0 Benign prostatic hyperplasia without lower urinary tract symptoms; F41.9 Anxiety disorder, unspecified; F32.A Depression, unspecified; Z95.810 Presence of automatic (implantable) cardiac defibrillator; I25.2 Old myocardial infarction; Z79.899 Other long term (current) drug therapy
CPT/HCPCS: 36415; 80053; 81001; 84443; 85025; 85610; 85730; 86850; 86900; 86901; 97110; 97116; 97163; 97530; G0378; J0330; J1100; J2003; J2250; J2405; J3490

== ENCOUNTER 2025-03-25 14:19 | Outpatient (CLI) | payer MEDICARE, OTHER | END 2025-03-25 17:00 | disposition home or self-care (01) | LOC: Rad HDHVI 14:19 | PROVIDERS: ATTEND Internal Medicine Cardiovascular Disease | DX: I73.9 Peripheral vascular disease, unspecified (principal) | CPT/HCPCS: 93925 ==